=== PATIENT | male | born 1945 | race Caucasian/White ===

== ENCOUNTER 2018-07-05 16:01 | Inpatient (IN) | payer MEDICARE, MEDICAID, SELFPAY ==
[2018-07-05 17:54] VITALS: BP 146/83; PULSE 93; RESP 18; TEMP 36.9; O2SAT 92
--- NOTE | 2018-07-05 20:11 | W.PM.HP.N ---
Date of service: 07/05/18 Time of Service: 20:11 Assessment and Plan (1) Hip fracture: Current visit: Yes Status: Acute Left Sided Subcapital Hip Fracture as result of mechanical fall, in patient with history of PD, chronic gait dysfunction, and multiple prior falls. Imaging obtained by disc from outside hospital and being put into local system. Maintain on NPO status after midnight for potential surgical repair. Pain control. (2) CHF (congestive heart failure): Current visit: Yes Status: Chronic History of Systolic and Diastolic CHF in the setting of NSTEMI, with LVEF of 30% by review of old records. Patient is currently euvolemic. Recent imaging unavailable for review, and home medication list appears incorrect as the patient is unaware of what he takes at home. Currently no evidence of statin or antiplatelet therapy. Will initiate low dose BB with hold parameters, obtain ECHO when available, and procure med list in the morning. (3) Parkinson disease: Current visit: Yes Status: Chronic Appears to be on a combination of Amantadine and Carbidopa/Levodopa, with dosing currently unavailable. Attempts to reach pharmacy unsuccessful as they were closed at time of patient's admission. Will attempt to reconcile patient's medications in the morning and reinitiate home regimen. (4) RBBB: Current visit: Yes Status: Chronic Noted. (5) CAD (coronary artery disease): Current visit: Yes Status: Chronic History of NSTEMI in June of 2014, s/p stents to Mid LAD and Proximal OM1. Reinitiate low dose BB with hold parameters, hold off on antiplatelet therapy given need for surgical intervention, and consider statin therapy pending review of patient's home medication list. (6) Old non-ST elevation myocardial infarction (NSTEMI): Current visit: Yes Status: Chronic (7) Hypertension: Current visit: Yes Status: Chronic Starting BB as above. Also appears to have been on combination of ARB & Thiazide diuretic in the past by review of records from 2014. Monitor blood pressure overnight and reinititate home meds when available. (8) DVT prophylaxis: Current visit: Yes Status: Acute SCDs (9) Discharge planning issues: Current visit: Yes Status: Acute Code status reviewed - DNR/DNI per patient's wishes. History of Present Illness Chief Complaint: Hip Pain Narrative: 73-year-old man with a past medical history significant for Parkinson's disease, chronic gait dysfunction with multiple previous falls, and a history of CAD with prior NSTEMI in 2013 presents as transfer from outside hospital with a left hip fracture following a fall. Mr. Castillo has a prior history of falls, described as 3-4 over the last year alone. He utilizes a walker at baseline for ambulation. Today he was opening mail in his kitchen while standing over a chair, when he reported onset of weakness that he attributes to his PD, and suffered a mechanical fall without loss of consciousness. He reported immediate onset of pain in his left hip, but waited to see if the discomfort would subside without intervention. As the pain did not jesse the patient was brought in to [facility] ED via EMS, where imaging showed a left sided Subcapital Hip fracture per review of records (Imaging results not available). Due to Orthopedic Surgery availability the patient was transferred to [facility] for surgical repair of his fractured hip. The patient reports minimal pain while laying still in bed. Of note, the patient's records from the outside institution were limited, and the patient is not aware of his home medications. Review of records from [facility] reveals a history of CAD, with NSTEMI in June of 2014. Mr. Castillo also has a history of Bi-ventricular Heart Failure, with an LVEF of 30%, but occuring in setting of Non ST Elevation [place]. Review of Systems Review of Systems All systems reviewed & are unremarkable except as noted in HPI and below [facility] Medical History Depression (Chronic) Back pain (Chronic) Hypertension (Chronic) Old non-ST elevation myocardial infarction (NSTEMI) (Chronic) CAD (coronary artery disease) (Chronic) BPH (benign prostatic hyperplasia) (Chronic) RBBB (Chronic) Parkinson disease (Chronic) CHF (congestive heart failure) (Chronic) Social History Smoking/Tobacco Use Status: Never additional social history: Patient is single and never , with no children. He lives alone in [facility]. 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 No prior history of tobacco or alcohol use. Denies illicit drug use. Surgical History S/P tonsillectomy (Chronic) Meds Home Medications Medication Instructions Recorded Confirmed Type Unknown [Unable to Obtain] 07/05/18 07/05/18 History Allergies Allergy/AdvReac Type Severity Reaction Status Date / Time Penicillins AdvReac Unverified 07/05/18 17:36 Exam Narrative Exam Narrative: General: Patient appears comfortable, AAOX3, NAD Neck: Supple CV: Regular, nontachycardic, S1S2, No rubs, murmurs, or gallops. Pulmonary: Clear to auscultation bilaterally, no crackles, wheezing, or rhonchi on somewhat limited anterior and lateral exam Abdomen: + Bowel Sounds, soft, nontender, nondistended Vascular: No lower extremity edema Neurologic: CN II-XII grossly intact. No focal deficits. MS: Pain overlying left hip on palpation. Psych: Normal mood and affect. Results Labs : 01/30/18 14:18
--- NOTE | 2018-07-05 20:27 | HPE_ITS ---
Date of service: 07/05/18 Time of Service: 20:11 Assessment and Plan (1) Hip fracture: Current visit: Yes Status: Acute Left Sided Subcapital Hip Fracture as result of mechanical fall, in patient with history of PD, chronic gait dysfunction, and multiple prior falls. Imaging obtained by disc from outside hospital and being put into local system. Maintain on NPO status after midnight for potential surgical repair. Pain control. (2) CHF (congestive heart failure): Current visit: Yes Status: Chronic History of Systolic and Diastolic CHF in the setting of NSTEMI, with LVEF of 30% by review of old records. Patient is currently euvolemic. Recent imaging unavailable for review, and home medication list appears incorrect as the patient is unaware of what he takes at home. Currently no evidence of statin or antiplatelet therapy. Will initiate low dose BB with hold parameters, obtain ECHO when available, and procure med list in the morning. (3) Parkinson disease: Current visit: Yes Status: Chronic Appears to be on a combination of Amantadine and Carbidopa/Levodopa, with dosing currently unavailable. Attempts to reach pharmacy unsuccessful as they were closed at time of patient's admission. Will attempt to reconcile patient's medications in the morning and reinitiate home regimen. (4) RBBB: Current visit: Yes Status: Chronic Noted. (5) CAD (coronary artery disease): Current visit: Yes Status: Chronic History of NSTEMI in June of 2014, s/p stents to Mid LAD and Proximal OM1. Reinitiate low dose BB with hold parameters, hold off on antiplatelet therapy given need for surgical intervention, and consider statin therapy pending review of patient's home medication list. (6) Old non-ST elevation myocardial infarction (NSTEMI): Current visit: Yes Status: Chronic (7) Hypertension: Current visit: Yes Status: Chronic Starting BB as above. Also appears to have been on combination of ARB & Thiazide diuretic in the past by review of records from 2014. Monitor blood pressure overnight and reinititate home meds when available. (8) DVT prophylaxis: Current visit: Yes Status: Acute SCDs (9) Discharge planning issues: Current visit: Yes Status: Acute Code status reviewed - DNR/DNI per patient's wishes. History of Present Illness Chief Complaint: Hip Pain Narrative: 73-year-old man with a past medical history significant for Parkinson 's disease, chronic gait dysfunction with multiple previous falls, and a history of CAD with prior NSTEMI in 2013 presents as transfer from outside hospital with a left hip fracture following a fall. Mr. Castillo has a prior history of falls, described as 3-4 over the last year alone. He utilizes a walker at baseline for ambulation. Today he was opening mail in his kitchen while standing over a chair, when he reported onset of weakness that he attributes to his PD, and suffered a mechanical fall without loss of consciousness. He reported immediate onset of pain in his left hip, but waited to see if the discomfort would subside without intervention. As the pain did not jesse the patient was brought in to [facility] via EMS, where imaging showed a left sided Subcapital Hip fracture per review of records (Imaging results not available). Due to Orthopedic Surgery availability the patient was transferred to [facility] for surgical repair of his fractured hip. The patient reports minimal pain while laying still in bed. Of note, the patient's records from the outside institution were limited, and the patient is not aware of his home medications. Review of records from [facility] reveals a history of CAD, with NSTEMI in June of 2014. Mr. Castillo also has a history of Bi-ventricular Heart Failure, with an LVEF of 30%, but occuring in setting of Non ST Elevation [place]. Review of Systems Review of Systems All systems reviewed & are unremarkable except as noted in HPI and below [facility] Medical History Depression (Chronic) Back pain (Chronic) Hypertension (Chronic) Old non-ST elevation myocardial infarction (NSTEMI) (Chronic) CAD (coronary artery disease) (Chronic) BPH (benign prostatic hyperplasia) (Chronic) RBBB (Chronic) Parkinson disease (Chronic) CHF (congestive heart failure) (Chronic) Social History Smoking/Tobacco Use Status: Never additional social history: Patient is single and never , with no children. He lives alone in [facility]. 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 No prior history of tobacco or alcohol use. Denies illicit drug use. Surgical History S/P tonsillectomy (Chronic) Meds Home Medications Medication Instructions Recorded Confirmed Type Unknown [Unable to Obtain] 07/05/18 07/05/18 History Allergies Allergy/AdvReac Type Severity Reaction Status Date / Time Penicillins AdvReac Unverified 07/05/18 17:36 Exam Narrative Exam Narrative: General: Patient appears comfortable, AAOX3, NAD Neck: Supple CV: Regular, nontachycardic, S1S2, No rubs, murmurs, or gallops. Pulmonary: Clear to auscultation bilaterally, no crackles, wheezing, or rhonchi on somewhat limited anterior and lateral exam Abdomen: + Bowel Sounds, soft, nontender, nondistended Vascular: No lower extremity edema Neurologic: CN II-XII grossly intact. No focal deficits. MS: Pain overlying left hip on palpation. Psych: Normal mood and affect. Results Labs : 01/30/18 14:18
[2018-07-05] MEDS: MORPHine 10 MG/ML VIAL IVP (20:29)
[2018-07-05] MEDS: Normal Saline Flush 10 ML SYR IVP (20:30)
[2018-07-05] MEDS: Metoprolol 50 MG TAB PO (21:59)
[2018-07-06] VITALS (13 sets, daily range): BP systolic 125–150; BP diastolic 71–89; PULSE 75–92; RESP 17–20; TEMP 36.8–38; O2SAT 87–94
[2018-07-06] MEDS: traMADol 50 MG TAB PO (00:15)
[2018-07-06] MEDS: Normal Saline Flush 10 ML SYR IVP ×2 (01:31→03:56)
[2018-07-06] MEDS: MORPHine 10 MG/ML VIAL IVP ×2 (01:31→03:56)
[2018-07-06 07:42] LABS: HCT 44.1 % (40.0-50.0); HGB 14.6 g/dL (13.5-17.5); Mean Corp. HGB Concentration 33.1 g/dL (32.0-36.0); Mean Corpuscular Volume 102.8 fL (80-95); Mean Platelet Volume 11.2 fL (8.0-11.0); Platelet Count 176 x1000/uL (130-400); RBC 4.29 m/cumm (4.50-6.00); RBC Distribution Width 12.6 % (11.8-14.1); White Blood Cell Count 11.25 k/cumm (4.4-10.8)
[2018-07-06 07:47] LABS: Anion Gap 6.6 mmol/L (3-11); BUN 24 mg/dL (7-18); CO2 29.4 mmol/L (21.0-32.0); CREATININE 0.98 mg/dL (0.70-1.30); Calcium 8.5 mg/dL (8.5-10.1); Chloride 106 mmol/L (98-107); Glucose 101 mg/dL (70-100); Potassium 3.8 mmol/L (3.5-5.1); Sodium 142 mmol/L (136-145)
[2018-07-06 08:13] LABS: Prothrombin Time 11.2 sec (9.3-10.8)
[2018-07-06 08:14] LABS: INR 1.1 (1.0-3.5)
--- NOTE | 2018-07-06 08:56 | PT.INNT ---
Date of service: 07/06/18 Time of Service: 08:57 PT Notes PHYSICAL THERAPY NOTE 07/06/18 PT Consult received, chart reviewed. Pt is admitted with hip fracture, no orthopedic notes yet in chart to determine if patient needs surgical intervention. HOLD PT consult until ortho examines and treatment plan determined. Liyah Alberts PT
[2018-07-06] MEDS: Metoprolol 50 MG TAB PO ×2 (09:42→21:10)
[2018-07-06 10:52] LABS: Creatine Kinase 281 U/L (39-308); Troponin I 0.02 ng/mL (0.00-0.06)
--- NOTE | 2018-07-06 11:32 | PHARADMIT ---
Addendum entered by Tito Fields III 07/09/18 16:13: Pharmacy Note Subjective Post-op day#2 Hip fracture surgery. Objective VS-OK Pain:0 H&H11.3/34.4 WBC-7.25 Assessment Tramadol for pain Plan Will need short stay in SNF, has been accepted when rady for discharge Original Note: Addendum entered by Nohemy Jon 07/07/18 17:25: Pharmacy Note Subjective pt went to the OR today Objective BP-96/54 other VS okay WBC-11.06 Assessment lopressor 50 mg po Q12H discontinues after tonights dose (if needed pending BP) toporol 150 mg due to start tomorrow morning Plan continue to watch VS, labs and for med changes Original Note: Admission Pharmacy Clinical RevieW LEFT HIP FRACTURE Code Status DNR/DNI Current Weight Wgt-70.5 kg Renally Cleared and Narrow Therapeutic Index Meds CrCl~ 68 mL/min Meds-OK QTc Value / Action Taken NA BP Control, Fever BP-133/89 Tmax- 36.9C Electrolytes reviewed Na-142 K+3.8 DVT Prophylaxis No (?? Surgery ?) Opiate Usage / Scheduled Bowel Regimen Ordered Yes Yes Plt/SCr for Heparin / Enoxaparin Plts- 176 SCr-0.98 INR for Warfarin inr-1.1 H/H stable, WBC/Bands H&H- 14.6/44.1 WBC-11.25 Antibiotic appropriateness none Cultures and Sensitivities none Surgical ABX d/c within 24 hr NA DM control / Insulin Dosing BG- 101 Heart Failure (Check EF%) (MILO's, B-Block, Diuretics) Lopressor IV to PO Switch No Home Meds Reviewed No Home Meds Not Ordered Not available Comments
--- NOTE | 2018-07-06 14:59 | W.ORTHOCONSU ---
Date of service: 07/06/18 Time of Service: 14:59 History of Present Illness Chief Complaint: Left hip pain. Narrative: Mr. Castillo fell in his own home yesterday sustaining a displaced left femoral neck fracture. He was seen at [facility] and subsequently transferred to [facility] for definitive treatment of his femoral neck fracture. He was admitted to the hospitalist service. It was noted once he was here, that he had significant cardiac disease pre-existing. This is being worked up by the hospitalist and anesthesia services prior to planned unipolar prosthetic replacement of the left femoral head for femoral neck fracture. He has been determined to be a significant cardiac risk for surgery. Assessment and Plan (1) Hip fracture: Current visit: Yes Status: Acute Assessment displaced fracture left femoral neck the patient with Parkinson's disease and significant coronary artery disease. Although he has had increased risk of complications with surgery, the fracture must be treated. He will need unipolar prosthetic replacement of the left femoral head. I discussed this with the nurse concrete floor installer today. Although his cardiac echo shows the EF of 30%, a second echo done recently shows no climate change risk assessor the past year. Because he is a high risk surgical candidate, the nurse concrete floor installer would prefer to do this surgery during the daytime when there is plenty of help around. I agree that doing the procedure during regular hours would be much safer. There is no urgency to giles and do it today. Plan: Discussed this with the hospitalist and she agrees with my plan to do the surgery tomorrow when there is more help around. She also agrees to try to get the orthotist prosthetist to see the patient tomorrow morning before the planned surgery. We will feed him today and keep him n.p.o. after midnight tonight. We will have him take his Parkinson's medications today and tomorrow by mouth. Plan to proceed with unipolar prosthetic replacement of the left femoral head for femoral neck fracture tomorrow under general anesthesia. [facility] Medical History Depression (Chronic) Back pain (Chronic) Hypertension (Chronic) Old non-ST elevation myocardial infarction (NSTEMI) (Chronic) CAD (coronary artery disease) (Chronic) BPH (benign prostatic hyperplasia) (Chronic) RBBB (Chronic) Parkinson disease (Chronic) CHF (congestive heart failure) (Chronic) Social History Smoking/Tobacco Use Status: Never additional social history: Patient is single and never , with no children. He lives alone in [facility]. 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 No prior history of tobacco or alcohol use. Denies illicit drug use. Surgical History S/P tonsillectomy (Chronic) Exam Narrative Exam Narrative: When I go into the room he is oriented. Left hip is quite irritable to any motion. There is minimal shortening of the left lower extremity. He has good capillary refill in his toes. There is no swelling of his left ankle or foot. He has good sensation to light touch in the left lower extremity. X-rays from [facility] show a displaced fracture of the left femoral neck. Results Labs : 07/06/18 06:55 07/06/18 06:55 Laboratory Results - last 24 hr 07/06/18 07/06/18 07/06/18 06:55 06:55 06:55 WBC 11.25 H RBC 4.29 L Hgb 14.6 Hct 44.1 MCV 102.8 H MCH 34.0 H MCHC 33.1 RDW 12.6 Plt Count 176 MPV 11.2 H PT 11.2 H INR 1.1 Sodium 142 Potassium 3.8 Chloride 106 Carbon Dioxide 29.4 Anion Gap 6.6 BUN 24 H Creatinine 0.98 Estimated GFR/1.73 m2 >= 60.00 Glucose 101 H Calcium 8.5 Creatine Kinase 281 Troponin I 0.02
--- NOTE | 2018-07-06 15:12 | OCONE_ITS ---
Date of service: 07/06/18 Time of Service: 14:59 History of Present Illness Chief Complaint: Left hip pain. Narrative: Mr. Castillo fell in his own home yesterday sustaining a displaced left femoral neck fracture. He was seen at [facility] and subsequently transferred to [facility] for definitive treatment of his femoral neck fracture. He was admitted to the hospitalist service. It was noted once he was here, that he had significant cardiac disease pre-existing. This is being worked up by the hospitalist and anesthesia services prior to planned unipolar prosthetic replacement of the left femoral head for femoral neck fracture. He has been determined to be a significant cardiac risk for surgery. Assessment and Plan (1) Hip fracture: Current visit: Yes Status: Acute Assessment displaced fracture left femoral neck the patient with Parkinson 's disease and significant coronary artery disease. Although he has had increased risk of complications with surgery, the fracture must be treated. He will need unipolar prosthetic replacement of the left femoral head. I discussed this with the nurse maple products supervisor today. Although his cardiac echo shows the EF of 30%, a second echo done recently shows no military exchange wireless manager the past year. Because he is a high risk surgical candidate, the nurse maple products supervisor would prefer to do this surgery during the daytime when there is plenty of help around. I agree that doing the procedure during regular hours would be much safer. There is no urgency to giles and do it today. Plan: Discussed this with the hospitalist and she agrees with my plan to do the surgery tomorrow when there is more help around. She also agrees to try to get the licensed sales producer to see the patient tomorrow morning before the planned surgery. We will feed him today and keep him n.p.o. after midnight tonight. We will have him take his Parkinson's medications today and tomorrow by mouth. Plan to proceed with unipolar prosthetic replacement of the left femoral head for femoral neck fracture tomorrow under general anesthesia. [facility] Medical History Depression (Chronic) Back pain (Chronic) Hypertension (Chronic) Old non-ST elevation myocardial infarction (NSTEMI) (Chronic) CAD (coronary artery disease) (Chronic) BPH (benign prostatic hyperplasia) (Chronic) RBBB (Chronic) Parkinson disease (Chronic) CHF (congestive heart failure) (Chronic) Social History Smoking/Tobacco Use Status: Never additional social history: Patient is single and never , with no children. He lives alone in [facility]. 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 No prior history of tobacco or alcohol use. Denies illicit drug use. Surgical History S/P tonsillectomy (Chronic) Exam Narrative Exam Narrative: When I go into the room he is oriented. Left hip is quite irritable to any motion. There is minimal shortening of the left lower extremity. He has good capillary refill in his toes. There is no swelling of his left ankle or foot. He has good sensation to light touch in the left lower extremity. X-rays from [facility] show a displaced fracture of the left femoral neck. Results Labs : 07/06/18 06:55 07/06/18 06:55 Laboratory Results - last 24 hr 07/06/18 07/06/18 07/06/18 06:55 06:55 06:55 WBC 11.25 H RBC 4.29 L Hgb 14.6 Hct 44.1 MCV 102.8 H MCH 34.0 H MCHC 33.1 RDW 12.6 Plt Count 176 MPV 11.2 H PT 11.2 H INR 1.1 Sodium 142 Potassium 3.8 Chloride 106 Carbon Dioxide 29.4 Anion Gap 6.6 BUN 24 H Creatinine 0.98 Estimated GFR/1.73 m2 >= 60.00 Glucose 101 H Calcium 8.5 Creatine Kinase 281 Troponin I 0.02
--- NOTE | 2018-07-06 18:38 | PGE_ITS ---
Assessment and Plan (1) Hip fracture: Current visit: Yes Status: Acute Left Sided Subcapital Hip Fracture as result of mechanical fall, in patient with history of PD, chronic gait dysfunction, and multiple prior falls. At this point, will need cardiology preop clearance and repeat echo (EF 30% seen on echo from 2016 and 2016). Patient is high risk surgically. (2) CHF (congestive heart failure): Current visit: Yes Status: Chronic History of Systolic and Diastolic CHF in the setting of NSTEMI, with LVEF of 30% by review of old records. Monitor volume status. Agree with beta blockade and repeat echo. (3) Parkinson disease: Current visit: Yes Status: Chronic obtaining patient's medication list from home (4) RBBB: Current visit: Yes Status: Chronic Noted. (5) CAD (coronary artery disease): Current visit: Yes Status: Chronic History of NSTEMI in June of 2014, s/p stents to Mid LAD and Proximal OM1. Continue beta blockers; agree with holding antiplatelets. No evidence of ACS on this admission. (6) Old non-ST elevation myocardial infarction (NSTEMI): Current visit: Yes Status: Chronic As above (7) Hypertension: Current visit: Yes Status: Chronic BP's adequately controlled at this time. No change in tx. (8) DVT prophylaxis: Current visit: Yes Status: Acute SCDs (9) Discharge planning issues: Current visit: Yes Status: Acute Code status reviewed - DNR/DNI per patient's wishes. He will most likely require rehab postoperatively. Subjective Interval history since last seen: The patient states he feels loopy right now. He thinks he is in [facility] [place]. He denies any pain at this time. He denies any dizziness, chest pain, shortness of breath, nausea, vomiting. Exam Narrative Exam Narrative: General: Very pleasant elderly male, comfortable in bed Neurological: Alert and oriented x1, no focal deficits HEENT: Extraocular movements are intact, moist mucous membranes, no submandibular or cervical lymphadenopathy, no goiter or JVD Cardiovascular: Regularly regular rhythm, no murmurs, rubs, or gallop Lungs: Clear to auscultation bilaterally Gastrointestinal: Abdomen soft, nontender, non-to Extremities: No edema, clubbing, or cyanosis; patient is guarding his left lower extremity Objective Objective Clinical Data: Abnormal lab results 07/06/18 07/06/18 07/06/18 Range/Units 06:55 06:55 06:55 WBC 11.25 H (4.4-10.8) k/cumm RBC 4.29 L (4.50-6.00) m/cumm MCV 102.8 H (80-95) fL MCH 34.0 H (27.0-33.0) pg MPV 11.2 H (8.0-11.0) fL PT 11.2 H (9.3-10.8) sec BUN 24 H (7-18) mg/dL Glucose 101 H (70-100) mg/dL Vital Signs Temperature 37.1 C 07/06/18 16:22 Temperature Source Tympanic 07/06/18 16:22 Pulse 84 07/06/18 16:22 Pulse Rhythm Regular 07/06/18 16:31 Respiratory Rate 20 07/06/18 16:22 Respiratory Effort 07/06/18 16:31 Respiratory Depth Normal 07/06/18 16:31 Respiratory Pattern Normal 07/06/18 16:31 Blood Pressure 150/81 H 07/06/18 16:22 Pulse Oximetry 92 L 07/06/18 16:37 Oxygen Delivery Method Nasal Cannula 07/06/18 16:37 Oxygen Flow Rate 3 07/06/18 16:37 Pain Level 4 07/06/18 16:22 Comment 07/06/18 12:50 Intake & Output 07/05/18 07/06/18 07/06/18 23:59 11:59 23:59 Intake Total 900 / 900 60 / 60 300 / 300 Output Total 150 / 150 425 / 425 300 / 300 Balance 750 / 750 -365 / -365 0 / 0 Weight 70.307 kg 70.5 kg Intake: Oral 900 / 900 60 / 60 300 / 300 Output: Urine 150 / 150 425 / 425 300 / 300 Other: Urine Color Yellow Light Eleanor Putnam Urine Appearance Clear Clear Cloudy Urine Odor Normal Normal Normal Comment pt refused Voiding Methods Urinal Urinal Urinal Laboratory Results WBC 11.25 k/cumm (4.4-10.8) H 07/06/18 06:55 RBC 4.29 m/cumm (4.50-6.00) L 07/06/18 06:55 Hgb 14.6 g/dL (13.5-17.5) 07/06/18 06:55 Hct 44.1 % (40.0-50.0) 07/06/18 06:55 MCV 102.8 fL (80-95) H 07/06/18 06:55 MCH 34.0 pg (27.0-33.0) H 07/06/18 06:55 MCHC 33.1 g/dL (32.0-36.0) 07/06/18 06:55 RDW 12.6 % (11.8-14.1) 07/06/18 06:55 Plt Count 176 x1000/uL (130-400) 07/06/18 06:55 MPV 11.2 fL (8.0-11.0) H 07/06/18 06:55 PT 11.2 sec (9.3-10.8) H 07/06/18 06:55 INR 1.1 (1.0-3.5) 07/06/18 06:55 Sodium 142 mmol/L (136-145) 07/06/18 06:55 Potassium 3.8 mmol/L (3.5-5.1) 07/06/18 06:55 Chloride 106 mmol/L (98-107) 07/06/18 06:55 Carbon Dioxide 29.4 mmol/L (21.0-32.0) 07/06/18 06:55 Anion Gap 6.6 mmol/L (3-11) 07/06/18 06:55 BUN 24 mg/dL (7-18) H 07/06/18 06:55 Creatinine 0.98 mg/dL (0.70-1.30) 07/06/18 06:55 Estimated GFR/1.73 m2 >= 60.00 (mL/min/1.73m2) 07/06/18 06:55 Glucose 101 mg/dL (70-100) H 07/06/18 06:55 Calcium 8.5 mg/dL (8.5-10.1) 07/06/18 06:55 Creatine Kinase 281 U/L (39-308) 07/06/18 06:55 Troponin I 0.02 ng/mL (0.00-0.06) 07/06/18 06:55 LDL Cholesterol Direct 74 mg/dL (<100) 01/30/18 14:18 TSH 2.70 uIU/mL (0.358-3.74) 01/30/18 14:18
--- NOTE | 2018-07-06 18:41 | PDOC.CMIN ---
Care Management Initial Assess REASON FOR HOSPITALIZATION:: Subcapital L Hip FX PAST MEDICAL HISTORY/PAST SURGICAL HISTORY:: CHF, Parkinsons, RBBB, CAD, NSTEMI, Tonsillectomy PREVIOUS FUNCTIONAL STATUS/SOCIAL/FAMILY SUPPORTS:: Independent. Lives alone in [facility] CURRENT FUNCTIONAL STATUS:: Lying comfortably in bed. ADVANCE DIRECTIVES:: None on file Has patient been provided with information about the portal?: No Did the patient sign up for the portal?: No CODE STATUS:: DNR/DNI INSURANCE COVERAGE / FINANCIAL ISSUES:: Medicare CURRENT HOME/COMMUNITY SERVICES/EQUIPMENT:: None PRIMARY CARE PHYSICIAN:: Warren Cleary MD POTENTIAL DISCHARGE NEEDS:: DME, Services PATIENT/FAMILY EDUCATION NEEDS:: Discharge instructions ANTICIPATED BARRIERS TO DISCHARGE:: None TRANSPORTATION:: Friends PLAN:: Anticipate surgical repair of Fx Hip tomorrow. Will follow and continue to support and facilitate discharge planning.
--- NOTE | 2018-07-06 18:49 | INITIAL_ITS ---
Care Management Initial Assess REASON FOR HOSPITALIZATION:: Subcapital L Hip FX PAST MEDICAL HISTORY/PAST SURGICAL HISTORY:: CHF, Parkinsons, RBBB, CAD, NSTEMI , Tonsillectomy PREVIOUS FUNCTIONAL STATUS/SOCIAL/FAMILY SUPPORTS:: Independent. Lives alone in [facility] CURRENT FUNCTIONAL STATUS:: Lying comfortably in bed. ADVANCE DIRECTIVES:: None on file Has patient been provided with information about the portal?: No Did the patient sign up for the portal?: No CODE STATUS:: DNR/DNI INSURANCE COVERAGE / FINANCIAL ISSUES:: Medicare CURRENT HOME/COMMUNITY SERVICES/EQUIPMENT:: None PRIMARY CARE PHYSICIAN:: Warren Cleary MD POTENTIAL DISCHARGE NEEDS:: DME, Services PATIENT/FAMILY EDUCATION NEEDS:: Discharge instructions ANTICIPATED BARRIERS TO DISCHARGE:: None TRANSPORTATION:: Friends PLAN:: Anticipate surgical repair of Fx Hip tomorrow. Will follow and continue to support and facilitate discharge planning.
[2018-07-06] MEDS: Acetaminophen 325 MG TAB PO (21:10)
[2018-07-07] VITALS (18 sets, daily range): BP systolic 88–147; BP diastolic 52–85; PULSE 72–85; RESP 10–24; TEMP 36–37.4; O2SAT 92–99
[2018-07-07 06:47] LABS: HCT 44.1 % (40.0-50.0); HGB 14.8 g/dL (13.5-17.5); Mean Corp. HGB Concentration 33.6 g/dL (32.0-36.0); Mean Corpuscular Hemoglobin 34.3 pg (27.0-33.0); Mean Corpuscular Volume 102.1 fL (80-95); Mean Platelet Volume 11.2 fL (8.0-11.0); Platelet Count 143 x1000/uL (130-400); RBC 4.32 m/cumm (4.50-6.00); RBC Distribution Width 12.6 % (11.8-14.1); White Blood Cell Count 11.06 k/cumm (4.4-10.8)
[2018-07-07 06:55] LABS: Anion Gap 9.1 mmol/L (3-11); BUN 23 mg/dL (7-18); CO2 26.9 mmol/L (21.0-32.0); Calcium 8.6 mg/dL (8.5-10.1); Chloride 107 mmol/L (98-107); Glucose 108 mg/dL (70-100); Potassium 3.5 mmol/L (3.5-5.1); Sodium 143 mmol/L (136-145)
--- NOTE | 2018-07-07 07:30 | MERGE_ITS ---
*[facility]* *[facility]* [address] [place] [address] Date of study: 07/07/2018 Transthoracic Echocardiography M-mode, complete 2D, complete spectral Doppler, and color Doppler *STUDY CONCLUSIONS* Summary: 1. Left ventricle: The cavity size was mildly to moderately dilated. Systolic function was moderately to severely reduced. The estimated ejection fraction was 30-35%. Diffuse hypokinesis. Akinesis of the apical myocardium. Doppler parameters are consistent with high ventricular filling pressure. No evidence of thrombus. 2. Aortic valve: There was mild regurgitation. 3. Mitral valve: There was mild regurgitation. 4. Left atrium: The atrium was mildly dilated. 5. Right ventricle: The cavity size was normal. Systolic function was mildly reduced. 6. Atrial septum: No defect or patent foramen ovale was identified. 7. Tricuspid valve: There was mild-moderate regurgitation. 8. Pulmonary arteries: Pulmonary systolic pressure was in the range of 45mm Hg to 55mm Hg. 9. Inferior vena cava: The vessel was patent and normal in size. The respirophasic diameter changes were in the normal range (greater than or equal to 50%), consistent with normal central venous pressure. *PATIENT PRESENTATION* Height: 182.9cm ((72in) ) S/D Pressure: 139 / 77 Weight: 70.3kg ((154.7lb) ) BSA: 1.88m^2 Test start time: 07:45 AM. Test stop time: 08:40 AM. PERFORMING Unknown ORDERING Brad Mayo REFERRING Brad Mayo PERFORMING [facility] *PROCEDURE DATA* Procedure information: The patient was identified by two identifiers. This study was interpreted by [facility]. Pertinent images and digital data are archived for permanent storage and are available for subsequent review. No prior study was available for comparison. Study status: Routine. Transthoracic echocardiography. M-mode, complete 2D, complete spectral Doppler, and color Doppler. A Transthoracic Echocardiogram was performed. Scanning was performed from the parasternal, apical, subcostal, and suprasternal notch acoustic windows. Images were obtained using an [id number] cardiac ultrasound machine. Image quality was adequate. Study completion: The patient tolerated the procedure well. *CARDIAC ANATOMY* Left ventricle: The cavity size was mildly to moderately dilated. Systolic function was moderately to severely reduced. The estimated ejection fraction was 30-35%. Diffuse hypokinesis. No evidence of thrombus. Regional wall motion abnormalities: Akinesis of the apical myocardium. Some parameters suggest diastolic dysfunction. Doppler parameters are consistent with high ventricular filling pressure. Aortic valve: Trileaflet. Doppler: There was no stenosis. There was mild regurgitation. VTI ratio of LVOT to aortic valve: 0.71. Valve area (VTI): 2.4cm^2. Indexed valve area (VTI): 1.3cm^2/m^2. Peak velocity ratio of LVOT to aortic valve: 0.69. Valve area (Vmax): 2.3cm^2. Indexed valve area (Vmax): 1.2cm^2/m^2. Mean velocity ratio of LVOT to aortic valve: 0.67. Valve area (Vmean): 2.3cm^2. Indexed valve area (Vmean): 1.2cm^2/m^2. Mean gradient (S): 5.5mm Hg. Peak gradient (S): 9.3mm Hg. Aorta: Aortic root: The aortic root was normal in size. Ascending aorta: The ascending aorta was normal in size. Mitral valve: Doppler: There was no evidence for stenosis. There was mild regurgitation. Valve area by pressure half-time: 6.2cm^2. Indexed valve area by pressure half-time: 3.3cm^2/m^2. Left atrium: The atrium was mildly dilated. Atrial septum: No defect or patent foramen ovale was identified. Right ventricle: The cavity size was normal. Systolic function was mildly reduced. Pulmonic valve: Doppler: There was no evidence for stenosis. There was trivial regurgitation. Peak gradient (S): 2.3mm Hg. Tricuspid valve: Doppler: There was mild-moderate regurgitation. Pulmonary artery: Poorly visualized. Pulmonary systolic pressure was in the range of 45mm Hg to 55mm Hg. Right atrium: The atrium was normal in size. Pericardium: There was no pericardial effusion. Systemic veins: Inferior vena cava: Well visualized. The vessel was patent and normal in size. The respirophasic diameter changes were in the normal range (greater than or equal to 50%), consistent with normal central venous pressure. Baseline ECG: Normal sinus rhythm. Measurements Left ventricle Value Reference LV ID, ED, PLAX (H) 6.5 cm 3.5 - 6.0 LV ID, ES, PLAX (H) 5.5 cm 2.1 - 4.0 LV PW thickness, ED, PLAX 1.0 cm LV end-diastolic volume, 1-p A2C 126 ml LV ejection fraction, 1-p A2C 24 % LV end-diastolic volume, 1-p A4C 178 ml LV ejection fraction, 1-p A4C 38 % LV e', lateral 0.035 m/sec LV E/e', lateral 15 LV e', medial 0.036 m/sec LV E/e', medial 15 LV e', average 0.036 m/sec LV E/e', average 15 Ventricular septum Value Reference IVS thickness, ED, PLAX 0.8 cm LVOT Value Reference LVOT ID, A-P 2.1 cm LVOT area 3.4 cm^2 LVOT peak velocity, S 1.05 m/sec LVOT mean velocity, S 0.76 m/sec LVOT VTI, S 21.3 cm LVOT peak gradient, S 4.5 mm Hg LVOT mean gradient, S 2.6 mm Hg Stroke volume (SV), LVOT DP 71 ml Stroke index (SV/bsa), LVOT DP 38 ml/m^2 Aortic valve Value Reference Aortic valve peak velocity, S 1.5 m/sec Aortic valve mean velocity, S 1.13 m/sec Aortic valve VTI, S 30.0 cm Aortic mean gradient, S 5.5 mm Hg Aortic peak gradient, S 9.3 mm Hg VTI ratio, LVOT/AV 0.71 Aortic valve area, VTI 2.4 cm^2 Velocity ratio, peak, LVOT/AV 0.69 Aortic valve area, peak velocity 2.3 cm^2 Velocity ratio, mean, LVOT/AV 0.67 Aortic valve area, mean velocity 2.3 cm^2 Aortic valve area/bsa, mean velocity 1.2 cm^2/m^2 Aortic regurg deceleration 350 cm/s^2 Aortic regurg pressure half-time 356 ms Aorta Value Reference Aortic root ID, ED 3.2 cm Ascending aorta ID, A-P, S 3.5 cm RVOT Value Reference RVOT VTI, S 12.7 cm Left atrium Value Reference LA ID, A-P, ES 4.4 cm LA ID/bsa, A-P (H) 2.4 cm/m^2 <=2.2 LA area, ES, A4C (H) 24.8 cm^2 8.8 - 23.4 LA area, ES, A2C 20 cm^2 LA volume/bsa, ES, 1-p A4C 42 ml/m^2 LA volume, ES, 2-p 72 ml LA volume/bsa, ES, 2-p 38 ml/m^2 LA/aortic root ratio 1.41 Mitral valve Value Reference Mitral E-wave peak velocity 0.52 m/sec Mitral A-wave peak velocity 0.89 m/sec Mitral deceleration time (L) 123 ms 150 - 230 Mitral pressure half-time 36 ms Mitral E/A ratio, peak 0.59 Mitral valve area, PHT, DP 6.2 cm^2 Tricuspid valve Value Reference Tricuspid regurg peak velocity 3.5 m/sec Tricuspid peak RV-RA gradient 48.2 mm Hg Right atrium Value Reference RA area, ES, A4C 16.9 cm^2 8.3 - 19.5 Pulmonic valve Value Reference Pulmonic peak gradient, S 2.3 mm Hg Legend: (L) and (H) wilber values outside specified reference range. I have personally reviewed the images and have reviewed and edited the reported findings. Electronically signed by Tu Pelletier MD 07/07/2018 11:15
--- NOTE | 2018-07-07 07:59 | OT.INNT ---
Date of service: 07/07/18 Time of Service: 07:59 Occupational Therapy Notes 07/07/18 Pt on hold from OT consult pending surgery to (L) hip at this time. Vernell Lopez OTR/L
--- NOTE | 2018-07-07 08:42 | DI.RAD_ITS ---
SYMPTOMS/DIAGNOSIS: FEVER IN A PATIENT WITH A HIP FRACTURE, ? PNEUMONIA CHEST X-RAY, AP VIEW: No priors. The heart is enlarged. Pulmonary vasculature is within normal limits. No focal consolidating infiltrates, effusion or pneumothoraces are identified. The bones are grossly unremarkable. IMPRESSION: 1. No acute pulmonary process. 2. Cardiomegaly.
[2018-07-07] MEDS: Metoprolol 50 MG TAB PO (09:43)
[2018-07-07] MEDS: Normal Saline Flush 10 ML SYR IVP (10:11)
[2018-07-07] MEDS: Furosemide 40 MG/4 ML VIAL IVP (10:11)
[2018-07-07] MEDS: Carbidopa 25/Levodopa 100 TAB PO ×4 (10:52→21:34)
--- NOTE | 2018-07-07 11:43 | PDOC.CMPRO ---
- If Service Date Differs Date of service: 07/07/18 Time of Service: 11:43 Care Management Progress Note S/O: Esther is lying in bed when CM visits this morning. He is engaged in conversation, makes good eye contact and is talkative. Esther denies pain at this time and does not appear in any distress. He reports that his recent fall was due to his Parkinson's but admits to having fallen 3-4 times over the course of this year. Esther reports that he uses a walker for ambulation and does venture out to religion and the grocery store, walking, with the walker, on occasion. He reports that he does not get out as much as he used to. Esther is independent with his ADLs and does not drive. He has family in [place] who bring his food every couple of weeks. Patient reports that he does not have any home health services at this time. He did have [facility] in the past but reports he canceled it due to his stockpiling the food in the freezer and not eating it. CM discusses plans with Esther regarding 'next steps' and he reports that he does not want to go to a SNF for rehab or group home. Esther is scheduled for the OR today following a cardiology consult. A: 73 year old male admitted post fall for subcapital left hip fracture. P: Esther will discharge home when medically ready per MD. Anticipate patient will discharge with home health services, PT/OT (?) and follow up with his PCP and plan of care. Esther will transport via private vehicle with friends. CM will continue to offer support to patient and care team regarding discharge planning and disposition.
--- NOTE | 2018-07-07 11:51 | CMPROGNOTE_ITS ---
- If Service Date Differs Date of service: 07/07/18 Time of Service: 11:43 Care Management Progress Note S/O: Esther is lying in bed when CM visits this morning. He is engaged in conversation, makes good eye contact and is talkative. Esther denies pain at this time and does not appear in any distress. He reports that his recent fall was due to his Parkinson's but admits to having fallen 3-4 times over the course of this year. Esther reports that he uses a walker for ambulation and does venture out to [employer] and the grocery store, walking, with the walker, on occasion. He reports that he does not get out as much as he used to. Esther is independent with his ADLs and does not drive. He has family in [place] who bring his food every couple of weeks. Patient reports that he does not have any home health services at this time. He did have [facility] in the past but reports he canceled it due to his stockpiling the food in the freezer and not eating it. CM discusses plans with Esther regarding 'next steps' and he reports that he does not want to go to a SNF for rehab or half-way. Esther is scheduled for the OR today following a cardiology consult. A: 73 year old male admitted post fall for subcapital left hip fracture. P: Esther will discharge home when medically ready per MD. Anticipate patient will discharge with home health services, PT/OT (?) and follow up with his PCP and plan of care. Esther will transport via private vehicle with friends. CM will continue to offer support to patient and care team regarding discharge planning and disposition.
--- NOTE | 2018-07-07 13:48 | PT.INNT ---
Date of service: 07/07/18 Time of Service: 13:48 PT Notes PHYSICAL THERAPY NOTE 07/07/18 Pt awaiting surgical intervention for fractured hip. Discharge PT Consult as patient is not stable to mobilize until surgery completed. Will need new PT Consult post operatively to begin therapy intervention. Will need weight bearing orders and precautions from ortho Liyah Alberts PT
[2018-07-07] MEDS: ELECTROLYTE-R SOLUTION 1,000 ML 150 ML IV (14:41)
--- NOTE | 2018-07-07 16:59 | W.PM.PROGNOT ---
Assessment and Plan (1) Hip fracture: Current visit: Yes Status: Acute Left Sided Subcapital Hip Fracture as result of mechanical fall, in patient with history of PD, chronic gait dysfunction, and multiple prior falls. - will monitor H/H and fluid status postoperatively. (2) CHF (congestive heart failure): Current visit: Yes Status: Chronic History of Systolic and Diastolic CHF in the setting of NSTEMI, with LVEF of 30% by review of old records. Patient written for lasix 40 mg x 1 preop - monitor volume status postop.Res (3) Parkinson disease: Current visit: Yes Status: Chronic Continue outpatient carbidopa-levodopa. (4) RBBB: Current visit: Yes Status: Chronic Noted. (5) CAD (coronary artery disease): Current visit: Yes Status: Chronic History of NSTEMI in June of 2014, s/p stents to Mid LAD and Proximal OM1. Continue beta blockers; holding antiplatelets for now. Will discuss with orthopedics when he is safe to restart them. No evidence of ACS on this admission. (6) Old non-ST elevation myocardial infarction (NSTEMI): Current visit: Yes Status: Chronic As above (7) Hypertension: Current visit: Yes Status: Chronic Resume outpatient regimen post op if BP's permit (8) DVT prophylaxis: Current visit: Yes Status: Acute SCDs (9) Discharge planning issues: Current visit: Yes Status: Acute Code status reviewed - DNR/DNI per patient's wishes. He will most likely require rehab postoperatively. Subjective Interval history since last seen: The patient was awaiting OR when I saw him. He was comfortable, denying any dizziness, chest pain, shortness of breath, nausea, vomiting. He stated he last took plavix on Saturday morning. Febrile to 38.1 overnight. Exam Narrative Exam Narrative: General: Very pleasant elderly male, comfortable in bed Neurological: Alert and oriented x3, no focal deficits HEENT: Extraocular movements are intact, moist mucous membranes, no submandibular or cervical lymphadenopathy, no goiter or JVD Cardiovascular: Regularly regular rhythm, no murmurs, rubs, or gallop Lungs: quiet but coarse rhonchi bilaterally. Gastrointestinal: Abdomen soft, nontender, nondistended Extremities: No edema, clubbing, or cyanosis in BLE's. Objective Objective Clinical Data: Abnormal lab results 07/07/18 07/07/18 Range/Units 06:12 06:12 WBC 11.06 H (4.4-10.8) k/cumm RBC 4.32 L (4.50-6.00) m/cumm MCV 102.1 H (80-95) fL MCH 34.3 H (27.0-33.0) pg MPV 11.2 H (8.0-11.0) fL BUN 23 H (7-18) mg/dL Glucose 108 H (70-100) mg/dL Vital Signs Temperature 37.1 C 07/07/18 11:44 Temperature Source Tympanic 07/07/18 11:44 Pulse 82 07/07/18 11:44 Pulse Rhythm Regular 07/07/18 07:50 Respiratory Rate 17 07/07/18 11:44 Respiratory Effort 07/07/18 07:50 Respiratory Depth Normal 07/07/18 07:50 Respiratory Pattern Normal 07/07/18 07:50 Blood Pressure 147/85 H 07/07/18 11:44 Pulse Oximetry 96 07/07/18 11:44 Oxygen Delivery Method Nasal Cannula 07/07/18 11:44 Oxygen Flow Rate 4 07/07/18 11:44 Pain Level 0 07/07/18 07:15 Comment 07/06/18 12:50 Intake & Output 07/06/18 07/07/18 07/07/18 23:59 11:59 23:59 Intake Total 300 / 300 65 / 65 Output Total 540 / 540 800 / 800 1275 / 1275 Balance -240 / -240 -800 / -800 -1210 / -1210 Intake: IV 65 / 65 Oral 300 / 300 Output: Urine 540 / 540 800 / 800 1075 / 1075 Estimated Blood Loss 200 / 200 Other: Urine Color Light Eleanor Light Eleanor Yellow Urine Appearance Clear Clear Clear Urine Odor Normal Strong Strong Comment post lasix pt incontinent of large amounts of urine. Voiding Methods Urinal Urinal Incontinent Laboratory Results WBC 11.06 k/cumm (4.4-10.8) H 07/07/18 06:12 RBC 4.32 m/cumm (4.50-6.00) L 07/07/18 06:12 Hgb 14.8 g/dL (13.5-17.5) 07/07/18 06:12 Hct 44.1 % (40.0-50.0) 07/07/18 06:12 MCV 102.1 fL (80-95) H 07/07/18 06:12 MCH 34.3 pg (27.0-33.0) H 07/07/18 06:12 MCHC 33.6 g/dL (32.0-36.0) 07/07/18 06:12 RDW 12.6 % (11.8-14.1) 07/07/18 06:12 Plt Count 143 x1000/uL (130-400) 07/07/18 06:12 MPV 11.2 fL (8.0-11.0) H 07/07/18 06:12 PT 11.2 sec (9.3-10.8) H 07/06/18 06:55 INR 1.1 (1.0-3.5) 07/06/18 06:55 Sodium 143 mmol/L (136-145) 07/07/18 06:12 Potassium 3.5 mmol/L (3.5-5.1) 07/07/18 06:12 Chloride 107 mmol/L (98-107) 07/07/18 06:12 Carbon Dioxide 26.9 mmol/L (21.0-32.0) 07/07/18 06:12 Anion Gap 9.1 mmol/L (3-11) 07/07/18 06:12 BUN 23 mg/dL (7-18) H 07/07/18 06:12 Creatinine 1.00 mg/dL (0.70-1.30) 07/07/18 06:12 Estimated GFR/1.73 m2 >= 60.00 (mL/min/1.73m2) 07/07/18 06:12 Glucose 108 mg/dL (70-100) H 07/07/18 06:12 Calcium 8.6 mg/dL (8.5-10.1) 07/07/18 06:12 Magnesium 2.0 mg/dL (1.8-2.4) 07/07/18 06:12 Creatine Kinase 281 U/L (39-308) 07/06/18 06:55 Troponin I 0.02 ng/mL (0.00-0.06) 07/06/18 06:55 LDL Cholesterol Direct 74 mg/dL (<100) 01/30/18 14:18 TSH 2.70 uIU/mL (0.358-3.74) 01/30/18 14:18 Patient ABO/Rh A Positive 07/07/18 14:45 Antibody Screen Negative 07/07/18 14:45 CXR: negative
--- NOTE | 2018-07-07 17:14 | DI.RAD_ITS ---
SYMPTOM/DIAGNOSIS: CHECK LT HIP PROSTHESIS AP PELVIS: Comparison is made with prior examination. The patient is status post left hip replacement. The orthopedic hardware appears in good position. The bones are intact. Skin leonidas are present. Vascular calcifications are present in the soft tissues. IMPRESSION: Status post left hip replacement.
[2018-07-07] MEDS: POTASSIUM CHLORIDE/0.9% NACL 1,000 ML 100 MEQ IV (19:00)
[2018-07-07] MEDS: Atorvastatin 40 MG TAB PO (21:34)
[2018-07-07] MEDS: Tamsulosin 0.4 MG CAPCR PO (21:34)
[2018-07-07] MEDS: Ketorolac 30 MG/ML VIAL IVP (21:34)
[2018-07-07] MEDS: Docusate Sodium 100 MG CAP PO (21:34)
[2018-07-07] MEDS: Finasteride 5 MG TAB PO (21:34)
[2018-07-07 22:36] LABS: HCT 41.2 % (40.0-50.0); HGB 13.8 g/dL (13.5-17.5)
--- NOTE | 2018-07-07 23:09 | NUR.NOTE ---
Nursing Note: patient arrived from [facility] to room 214 at aprx 1750. Patient transferred from stretcher to bed via hover without difficulties. Bilateral IV's patent, griffin patent, and arterial pressure dressing intact. Dressing to left hip c/d/i. Denies pain or discomfort. Requested food and po as soon as patient hit floor. Family at bedside. All needs met.
[2018-07-08] VITALS (10 sets, daily range): BP systolic 82–112; BP diastolic 54–63; PULSE 68–94; RESP 17–24; TEMP 36–37.8; O2SAT 90–97
[2018-07-08] MEDS: Ketorolac 30 MG/ML VIAL IVP ×4 (04:56→22:56)
[2018-07-08] MEDS: POTASSIUM CHLORIDE/0.9% NACL 1,000 ML 100 MEQ IV (04:56)
[2018-07-08 06:53] LABS: HCT 40.6 % (40.0-50.0); HGB 13.6 g/dL (13.5-17.5); Mean Corp. HGB Concentration 33.5 g/dL (32.0-36.0); Mean Corpuscular Hemoglobin 34.4 pg (27.0-33.0); Mean Corpuscular Volume 102.8 fL (80-95); Mean Platelet Volume 11.3 fL (8.0-11.0); Platelet Count 134 x1000/uL (130-400); RBC 3.95 m/cumm (4.50-6.00); RBC Distribution Width 12.4 % (11.8-14.1); White Blood Cell Count 10.87 k/cumm (4.4-10.8)
[2018-07-08 06:59] LABS: Anion Gap 8.9 mmol/L (3-11); BUN 29 mg/dL (7-18); CO2 27.1 mmol/L (21.0-32.0); CREATININE 1.25 mg/dL (0.70-1.30); Chloride 108 mmol/L (98-107); Estimated GFR 56.94 (mL/min/1.73m2); Glucose 141 mg/dL (70-100); Potassium 3.7 mmol/L (3.5-5.1); Sodium 144 mmol/L (136-145)
[2018-07-08] MEDS: Carbidopa 25/Levodopa 100 TAB PO ×4 (08:03→19:15)
[2018-07-08] MEDS: traMADol 50 MG TAB PO (08:03)
[2018-07-08] MEDS: Metoprolol CR 100 MG TABCR 150 MG PO (08:03)
[2018-07-08] MEDS: Docusate Sodium 100 MG CAP PO ×2 (08:03→19:16)
[2018-07-08] MEDS: Acetaminophen 325 MG TAB 650 MG PO (08:03)
[2018-07-08] MEDS: Pantoprazole 40 MG TABCR PO (08:03)
--- NOTE | 2018-07-08 09:30 | PDOC.CMPRO ---
- If Service Date Differs Date of service: 07/08/18 Time of Service: 09:30 Care Management Progress Note S/O: Esther is lying in bed when CM visits this morning. He is engaged in conversation and is talkative but keeps his eyes closed while speaking to CM. Esther is post op day 1 for surgical repair of his left hip. His griffin has been removed, he reports that he is voiding, and he denies pain. PT and OT are due to work with Esther today and evaluate his ability with ambulation. Esther reports that he uses a walker at home and has fallen multiple times over the course of the year. CM and patient discussed the fact that he resides alone, is unsteady on his feet at baseline, and he might benefit from a short term rehab stay at a local SNF. Esther initially is not open to the idea but does eventually agree that this might be a good option. CM faxed referrals to [facility], [facility], [facility], [facility], and the [facility]. [facility] has offered Esther a bed at discharge and Esther has accepted. Esther has a walker so will not be needing DME upon discharge. Esther reports that he works with [employer] at [employer] but has no other community services. A: 73 year old male admitted post fall for subcapital left hip fracture. P: Esther will discharge to [facility] for short term rehab when medically ready per MD. Anticipate patient will discharge with home health services, PT/OT (if home) and follow up with his PCP and plan of care. Esther will transport via private vehicle with friends. CM will continue to offer support to patient and care team regarding discharge planning and disposition.
--- NOTE | 2018-07-08 09:35 | ROE_ITS ---
REPORT OF OPERATIVE PROCEDURE DATE OF PROCEDURE July 07, 2018 PREOPERATIVE DIAGNOSES Fracture left femoral neck displaced. POSTOPERATIVE DIAGNOSES Fracture left femoral neck displaced. PROCEDURE Unipolar prosthetic replacement left femoral head for femoral neck fracture. ANESTHESIA General. SURGEON Gwyn Pena M.D. BODY WELDER HARPAL Molina INDICATIONS This is a 73-year-old white male who fell at home on 07/05/2018 sustained a displaced fracture of the left femoral neck. He was transported to the [facility] for evaluation. There was no orth opedic coverage at [facility] and I was contacted from the [facility] Emergen cy Room. I agreed to accept the patient. The patient was admitted to the Hospitalist Service for pre operative clearance. The patient had prior cardiac issues and so it was felt that rather than perform ing surgery late in the day on Saturday, that surgery should be performed during regular OR hours so th at there would be help around if problems occurred. It was therefore decided to bring the patient to the Operating Room on 07/07/2018 for definitive treatment, which would be a unipolar prosthetic repla cement of the left femoral head for femoral neck fracture. The risks and complications of the procedu re were explained to the patient in detail preoperatively. PROCEDURE The patient was taken to the Operating Room on 07/07/2018. He was placed supine on the operating tabl e and General anesthetic was administered. He was then turned to the left lateral position on the Ope rating Table, the position was maintained with a pneumatic beanbag. The left hip was prepped and drap ed free and usual sterile fashion. A standard posterolateral incision was made centered over the grea ter trochanter. The incision was carried through the skin and subcu to the fascia. The iliotibial ba nd and gluteus fascia were split in line with the skin incision. Charnley self-retraining retractors were inserted. The piriformis tendon was identified. Tag sutures were placed in the piriformis tendon and the piriformis tendon was then released from the posterior femoral neck. The remainder of the short external rotators were released from the posterior femoral n rajiv by electrocautery. A T-shaped incision was made in the posterior capsule, exposing the fracture. The fractured femoral head was removed with a cork screw device. The femoral neck was then resected a t an appropriate angle and level using the oscillating saw and the femoral neck resection guide. The femoral canal was reamed with serial reamers to a size 6 and then was broached up to a size 6, where there was found to be good fit and fill of the femoral canal. The broach was removed. The femoral can al was plugged distally with the universal cement restrictor. The femoral head was sized and a trial unipolar head was placed in the acetabulum and it was found that a 50-mm head was the appropriate siz e. The femoral canal was then prepared with cementing with pulse irrigation lavage of saline solution and drying with peroxide-soaked strip sponges. Two packages of Gentamicin-impregnated Methyl Methacr ylate were vacuum mixed and were injected into the prepared femoral canal with the cement gun and pre ssurized in the canal. The size #6 stem had a centralizer applied to the tip and then the size #6 fem oral stem was inserted until the collar of the component contacted the calcar of the femur. Pressure was applied to maintain the stem in this position. Excess cement was removed from the margins of the component and femoral neck with rongeurs. When the cement had fully cured and hardened, trial reducti on was performed and it was found that a -3 sleeve with a 50-mm diameter endo head was the correct si ze. The -3-mm sleeve was placed in the endo head and then the entire unipolar assembly was placed on the trunnion of the femoral component. It was locked into place with the impactor mallet. The femoral component was reduced into the acetabulum. The left leg was abducted in a Glasgow stand. The posterior capsule was closed with interrupted cafesm-ep-qxowt sutures of #1-Vicryl suture material. The wound m argins were infiltrated with 0.5% Marcaine with epinephrine solution. The piriformis tendon was attac hed to the abductor tendon at the posterior tip of the trochanter with interrupted qhahud-ga-xigrb tapia tures of #1-Vicryl suture material. The wound margins were infiltrated with 0.5% Marcaine with epinep hrine solution. The iliotibial band and gluteus fascia were approximated with interrupted figure-of-e ight sutures of #1- Vicryl suture material. The subcu was approximated with interrupted #2-0 Vicryl s utures. The skin edges were approximated with skin leonidas. The patient received 1.5 gram of tranexa radha acid prior to making the skin incision. Estimated blood loss was about 150 to 200 cc. The patient tolerated the procedure well. His anesthesia was reversed without complications. He was discharged t o the Recovery Room in good condition.
--- NOTE | 2018-07-08 09:38 | CMPROGNOTE_ITS ---
- If Service Date Differs Date of service: 07/08/18 Time of Service: 09:30 Care Management Progress Note S/O: Esther is lying in bed when CM visits this morning. He is engaged in conversation and is talkative but keeps his eyes closed while speaking to CM. Esther is post op day 1 for surgical repair of his left hip. His griffin has been removed, he reports that he is voiding, and he denies pain. PT and OT are due to work with Esther today and evaluate his ability with ambulation. Esther reports that he uses a walker at home and has fallen multiple times over the course of the year. CM and patient discussed the fact that he resides alone, is unsteady on his feet at baseline, and he might benefit from a short term rehab stay at a local SNF. Esther initially is not open to the idea but does eventually agree that this might be a good option. CM faxed referrals to [facility], [facility], [facility], [facility], and the [facility]. [facility] has offered Esther a bed at discharge and Esther has accepted. Esther has a walker so will not be needing DME upon discharge. Esther reports that he works with [employer] at [facility] but has no other community services. A: 73 year old male admitted post fall for subcapital left hip fracture. P: Esther will discharge to [facility] for short term rehab when medically ready per MD. Anticipate patient will discharge with home health services, PT/OT (if home) and follow up with his PCP and plan of care. Esther will transport via private vehicle with friends. CM will continue to offer support to patient and care team regarding discharge planning and disposition.
[2018-07-08 09:42] LABS: Bilirubin Small (Negative); Blood Negative (Negative); Clarity Cloudy; Glucose Negative (Negative); Ketones 15 mg/dL (Negative); Leukocyte Esterase Trace (Negative); Nitrite Negative (Negative)
[2018-07-08 09:52] LABS: Epithelial Cells Rare HPF (Negative); RBC Negative (0-2)
[2018-07-08 09:53] LABS: Bacteria Few HPF (Negative); C & S Indicated? C&S Done As Ordered; Casts Negative LPF (Negative); Crystals Moderate Amorphous HPF (Negative); Mucus Trace (Negative); Other Cells Rare Renal (Negative)
--- NOTE | 2018-07-08 10:23 | PT.INIE ---
Date of service: 07/08/18 Time of Service: 10:23 PT Notes Inpatient Physical Therapy Evaluation Date: 07/08/18 Referring Doctor: Gwyn Pena PT Orders: PT CONSULT: mobilize post op L hemiarthroplasty L hip for femoral neck fx. WBAT to L leg. Total hip precautions L Precautions: posterior L TONYA precautions, WBAT L LE Patient Profile/Admitting Diagnosis: Pt is a 73yr old s/p posterior total hip arthroplasty by Dr. Pena 07/07/18 PMHX: Parkinson's disease, chronic gait dysfunction, chronic back pain, coronary artery disease s/p non ST elevated myocardial infarction, hypertension, congestive heart failure, benign prostatic hypertrophy, tonsillectomy Social History/Home Situation: Lives alone in home in [place], baseline mobility independent gait with 4WW, assist with ADLS Equipment Owned/DME: 4WW, grab bars in bathroom, shower chair Subjective: Pt lying in bed, alert and agreeable to PT Consult. Objective: General Observation: IV R UE, griffin catheter, abduction pillow Mental Status: A& O x3 Pain: no c/o pain ROM: Right Upper Extremity: AAROM WNL Left Upper Extremity: AAROM WNL Right Lower Extremity: AAROM hip flexion 90, knee WNL, ankle WNL * Pt with tendency to sit in knee flexion but can extend knees Left Lower Extremity: AAROM hip flexion 90, knee WNL, ankle WNL * Pt with tendency to sit in knee flexion but can extend knees Strength: Right Upper Extremity: 4/5 throughout Left Upper Extremity: 4/5 throughout Right Lower Extremity: 3/5 hip flexion, 4/5 quad, 4/5 DF/PF Left Lower Extremity: hip NT, 4/5 quad, 4/5 DF/PF Bed Mobility/Transfers: Supine-sit: HOB 35 degrees, maxA with use of bedpad to get to sitting at edge of bed Sit-stand: maxAx2 with FWW Bed-chair: maxAx2 with FWW Stand-sit: maxAx2 Gait: maxAx2 with FWW 6 steps bed to chair, pt with flexed trunk due to back pain, flexed hips and knees, unable to stand fully erect. Narrow base of support with short shuffle steps to chair. Pt left up in chair with legs elevated, abduction pillow in place and fall alarm activated. Therex: initiated ankle pumps and quad sets x 20 reps in chair Precautions: Pt issued handouts and instructed in posterior total hip precautions, pt verbalized understanding Balance: Static Sitting: normal Dynamic Sitting: good Static Standing: poor Dynamic Standing: poor Special Tests: Mobility Limitations Standardized Measure [facility] AM-PAC 6 clicks Basic Mobility Inpatient Short Form: Raw Score: 9 Standardized Score: 30.55 CMS Score: 81.38% CMS Modifier: CM Informed Consent/Education: Patient instructed in purpose of PT consult and plan of care. Assessment: Pt is a 73yr old s/p posterior total hip arthroplasty by Dr. Pena 07/07/18 in setting of Parkinson's disease, chronic gait dysfunction, chronic back pain, coronary artery disease Patient presents with the following impairment level findings: edema left hip, decreased strength left hip, decreased strength with bed transfers requiring maxA to get to sitting positions, decreased strength with gait requiring 2 person max assist to get to standing position with FWW, decreased standing balance due to L TONYA and back pain/ weakness due to Parkinson's disease, decreased standing balance putting him at high risk for falls and requiring 2 person maxA to transfer to chair and perform gait with FWW. Pt has posterior hip precautions to maintain which make positioning more of a challenge in setting of Parkisnon's disease. Pt with decreased strength in upper and lower extremities and stiffness due to Parkinson's disease which makes mobility more difficult with posterior TONYA. Pt lives alone at baseline, pt will require a group home care facility for rehab prior to return to home setting to assist return to independent functional mobility. Pt has 4WW at home but would be much safer with FWW at discharge to reduce risk of falls. Impairments are contributing to the following functional limitations: AMPAC score CMS Score: 81.38% Patient is assessed as a High [id number] complexity based on the following: History: see above Examination: see above Presentation: evolving Decision Making: AMPAC score CMS Score: 81.38% Goals: Goals X1 week 1. Supine-Sit: minAx1 2. Sit-Supine: minAx1 3. Sit-Stand : modAx1 with FWW 4. Stand-Sit: minAx1 5. Bed-Chair: modAx1 with FWW 6. Chair-Bed: modAx1 with FWW 7. Gait: modax1 with FWW 30ft, WBAT L LE Plan of Care/Treatment Plan: 1-2x/day, 7 days/week x 1 week. Plan of care has been reviewed with the BREWING DIRECTOR providing the service under Physical Therapy direction. Initiate Physical Therapy intervention for strengthening, bed mobility, transfers, gait, stairs, balance training, use of assistive device. DISCHARGE RECOMMENDATIONS: rn long term care care facility for rehab, FWW for gait stability * Recommend OT consult in hospital setting for instruction in ADLS with adapative equipment. Needs to be ordered post operatively. TREATMENT CODE/TIME: 30 IE 10:13 G Codes in the area mobility of walking and moving around: current status [id number] CM projected status GP [id number]. Discharge status (if discharging) GP [id number] CM based on [facility] score CMS Score: 81.38% Liyah Alberts PT
[2018-07-08] MEDS: Multivitamin w/Minerals TAB 1 TAB PO (10:27)
--- NOTE | 2018-07-08 10:27 | IN_ITS ---
Date of service: 07/08/18 Time of Service: 10:23 PT Notes Inpatient Physical Therapy Evaluation Date: 07/08/18 Referring Doctor: Gwyn Pena PT Orders: PT CONSULT: mobilize post op L hemiarthroplasty L hip for femoral neck fx. WBAT to L leg. Total hip precautions L Precautions: posterior L TONYA precautions, WBAT L LE Patient Profile/Admitting Diagnosis: Pt is a 73yr old s/p posterior total hip arthroplasty by Dr. Pena 07/07/18 PMHX: Parkinson's disease, chronic gait dysfunction, chronic back pain, coronary artery disease s/p non ST elevated myocardial infarction, hypertension , congestive heart failure, benign prostatic hypertrophy, tonsillectomy Social History/Home Situation: Lives alone in home in [place], baseline mobility independent gait with 4WW, assist with ADLS Equipment Owned/DME: 4WW, grab bars in bathroom, shower chair Subjective: Pt lying in bed, alert and agreeable to PT Consult. Objective: General Observation: IV R UE, griffin catheter, abduction pillow Mental Status: A& O x3 Pain: no c/o pain ROM: Right Upper Extremity: AAROM WNL Left Upper Extremity: AAROM WNL Right Lower Extremity: AAROM hip flexion 90, knee WNL, ankle WNL * Pt with tendency to sit in knee flexion but can extend knees Left Lower Extremity: AAROM hip flexion 90, knee WNL, ankle WNL * Pt with tendency to sit in knee flexion but can extend knees Strength: Right Upper Extremity: 4/5 throughout Left Upper Extremity: 4/5 throughout Right Lower Extremity: 3/5 hip flexion, 4/5 quad, 4/5 DF/PF Left Lower Extremity: hip NT, 4/5 quad, 4/5 DF/PF Bed Mobility/Transfers: Supine-sit: HOB 35 degrees, maxA with use of bedpad to get to sitting at edge of bed Sit-stand: maxAx2 with FWW Bed-chair: maxAx2 with FWW Stand-sit: maxAx2 Gait: maxAx2 with FWW 6 steps bed to chair, pt with flexed trunk due to back pain, flexed hips and knees, unable to stand fully erect. Narrow base of support with short shuffle steps to chair. Pt left up in chair with legs elevated, abduction pillow in place and fall alarm activated. Therex: initiated ankle pumps and quad sets x 20 reps in chair Precautions: Pt issued handouts and instructed in posterior total hip precautions, pt verbalized understanding Balance: Static Sitting: normal Dynamic Sitting: good Static Standing: poor Dynamic Standing: poor Special Tests: Mobility Limitations Standardized Measure [facility] AM-PAC 6 clicks Basic Mobility Inpatient Short Form: Raw Score: 9 Standardized Score: 30.55 CMS Score: 81.38% CMS Modifier: CM Informed Consent/Education: Patient instructed in purpose of PT consult and plan of care. Assessment: Pt is a 73yr old s/p posterior total hip arthroplasty by Dr. Pena 07/07/18 in setting of Parkinson's disease, chronic gait dysfunction, chronic back pain, coronary artery disease Patient presents with the following impairment level findings: edema left hip, decreased strength left hip, decreased strength with bed transfers requiring maxA to get to sitting positions, decreased strength with gait requiring 2 person max assist to get to standing position with FWW, decreased standing balance due to L TONYA and back pain/ weakness due to Parkinson's disease, decreased standing balance putting him at high risk for falls and requiring 2 person maxA to transfer to chair and perform gait with FWW. Pt has posterior hip precautions to maintain which make positioning more of a challenge in setting of Parkisnon's disease. Pt with decreased strength in upper and lower extremities and stiffness due to Parkinson's disease which makes mobility more difficult with posterior TONYA. Pt lives alone at baseline, pt will require a longwall fore[facility] care facility for rehab prior to return to home setting to assist return to independent functional mobility. Pt has 4WW at home but would be much safer with FWW at discharge to reduce risk of falls. Impairments are contributing to the following functional limitations: AMPAC score CMS Score: 81.38% Patient is assessed as a High [id number] complexity based on the following: History: see above Examination: see above Presentation: evolving Decision Making: AMPAC score CMS Score: 81.38% Goals: Goals X1 week 1. Supine-Sit: minAx1 2. Sit-Supine: minAx1 3. Sit-Stand : modAx1 with FWW 4. Stand-Sit: minAx1 5. Bed-Chair: modAx1 with FWW 6. Chair-Bed: modAx1 with FWW 7. Gait: modax1 with FWW 30ft, WBAT L LE Plan of Care/Treatment Plan: 1-2x/day, 7 days/week x 1 week. Plan of care has been reviewed with the YARD CLERK providing the service under Physical Therapy direction. Initiate Physical Therapy intervention for strengthening, bed mobility, transfers, gait, stairs, balance training, use of assistive device. DISCHARGE RECOMMENDATIONS: [facility] care facility for rehab, FWW for gait stability * Recommend OT consult in hospital setting for instruction in ADLS with adapative equipment. Needs to be ordered post operatively. TREATMENT CODE/TIME: 30 IE 10:13 G Codes in the area mobility of walking and moving around: current status [id number] CM projected status GP [id number]. Discharge status (if discharging) GP [id number] CM based on [facility] score CMS Score: 81.38% Liyah Alberts PT
[2018-07-08] MEDS: Normal Saline Flush 10 ML SYR IVP ×3 (10:28→22:56)
--- NOTE | 2018-07-08 11:34 | PT.INTREAT ---
Date of service: 07/08/18 Time of Service: 11:34 PT Notes Inpatient Physical Therapy Treatment Note Date: 07/08/18 PRECAUTIONS: Fall precautions, Posterior total hip precautions, WBAT L LE SUBJECTIVE: Pt falling asleep in the chair, RN noted he had hypotensive blood pressure reading, pt agreeable to transfers back to bed. OBJECTIVE: General observation: IV RUE, abduction pillow for hip precautions Bed Mobility/Transfers: Sit-stand: maxAx2 with FWW Chair-bed: maxAx2 with FWW Stand-sit: maxAx2 sit-supine: HOB flat, maxAx2 Gait: maxA STEDY lift for transfer back to bed Balance: Static Sitting: normal Dynamic Sitting: good Static Standing: poor Dynamic Standing: poor ASSESSMENT: Pt was able to sit in recliner chair x1hr this morning, decreased blood pressures required transfers back to bed, pt falling asleep once positioned back in bed. Pt requiring maxA for all transfers and standing mobility at this time due to Parkinson's and post op posterior L TONYA. Anticipate he will require skilled nursing care facility for rehab prior to return to home setting. PLAN: Progress transfers Progress gait mobility TREATMENT CODE/TIME: 15min TAx1 11:33 Liyah Alberts PT
--- NOTE | 2018-07-08 11:39 | PTTR_ITS ---
Date of service: 07/08/18 Time of Service: 11:34 PT Notes Inpatient Physical Therapy Treatment Note Date: 07/08/18 PRECAUTIONS: Fall precautions, Posterior total hip precautions, WBAT L LE SUBJECTIVE: Pt falling asleep in the chair, RN noted he had hypotensive blood pressure reading, pt agreeable to transfers back to bed. OBJECTIVE: General observation: IV RUE, abduction pillow for hip precautions Bed Mobility/Transfers: Sit-stand: maxAx2 with FWW Chair-bed: maxAx2 with FWW Stand-sit: maxAx2 sit-supine: HOB flat, maxAx2 Gait: maxA STEDY lift for transfer back to bed Balance: Static Sitting: normal Dynamic Sitting: good Static Standing: poor Dynamic Standing: poor ASSESSMENT: Pt was able to sit in recliner chair x1hr this morning, decreased blood pressures required transfers back to bed, pt falling asleep once positioned back in bed. Pt requiring maxA for all transfers and standing mobility at this time due to Parkinson's and post op posterior L TONYA. Anticipate he will require [facility] care facility for rehab prior to return to home setting. PLAN: Progress transfers Progress gait mobility TREATMENT CODE/TIME: 15min TAx1 11:33 Liyah Alberts PT
--- NOTE | 2018-07-08 12:00 | NUR.NOTE ---
Nursing Note: Pt sitting up in recliner, hypotensive, denies pain, dizziness. PT assisted Pt back to chair. VS rechecked, see intervention on worklist. Cailin Hansen notified of hypotension. Will continue to monitor.
[2018-07-08] MEDS: Normal Saline 250 ML IV ×2 (13:22→19:14)
--- NOTE | 2018-07-08 13:59 | PGE_ITS ---
Assessment and Plan (1) Hip fracture: Current visit: Yes Status: Acute He is postop day #1 of a left hip fracture repair by Dr. Pena. The left hip fracture was the result of a mechanical fall at home. He has had multiple falls at home. He does have a history of Parkinson's with chronic gait dysfunction. He is working with physical therapy. He is agreeable to a short-term rehab upon discharge. Continue physical therapy and pain control. Orthopedics continues to follow along. (2) CHF (congestive heart failure): Current visit: Yes Status: Chronic History of systolic and diastolic congestive heart failure in the setting of previous NSTEMI, with LVEF of 30-35%. He typically takes Lasix daily. His blood pressures have been soft, he appears dry by physical exam. Continue to hold Lasix for now acute and provide gentle IV fluid hydration. Continue to monitor closely for signs of fluid overload. Continue to monitor blood pressure. Plan to resume Lasix when blood pressure stable, likely at a lower dose. (3) Parkinson disease: Current visit: Yes Status: Chronic Continue outpatient carbidopa/levodopa. (4) CAD (coronary artery disease): Current visit: Yes Status: Chronic With history of an NSTEMI in June 2014, status post stent placement, with cardiomyopathy with LVEF of 30-35%. He has been on his usual beta-jarrod dose, however, he did experience hypotension today. Antiplatelet therapy on hold at present time. Will defer to orthopedics on when to restart antiplatelet therapy. We will place his beta-jarrod on hold and continue to monitor his blood pressures. (5) DVT prophylaxis: Current visit: Yes Status: Acute Continue SCDs. (6) Discharge planning issues: Current visit: Yes Status: Acute He is a DNR/DNI. He will very likely need short-term rehab when he is ready for discharge from the hospital. He is agreeable and has been accepted at [facility]. This case was discussed with Dr. Wall who is in agreement. Subjective Interval history since last seen: Esther Castillo is a 73-year-old man with a past medical history significant for Parkinson's disease, chronic gait dysfunction with multiple previous falls, and a history of CAD with prior NSTEMI in 2013 and a cardiomyopathy with an LVEF of 30-35%, who presented as transfer from [facility] with a left hip fracture following a fall. He went on to have his left hip fracture surgically repaired by Dr. Pena on 07/07/2018. He is postop day #1 following unipolar prosthetic replacement of the left femoral head for femoral neck fracture. He is very sleepy today, however he does awaken easily to verbal stimuli. When questioned about pain, he denies any pain at all. Specifically no left hip pain. He denies chest pain, chest pressure, shortness of breath. He is eating and drinking, although he needs to be reminded to drink fluids. His blood pressure has been soft today. He is currently receiving a 250 cc bolus of normal saline. He did also receive tramadol. Exam Const General: cooperative and comfortable (He is lying in bed, he is very sleepy, awakens easily to verbal stimuli. He is in no acute distress. He answers questions appropriately. ) Orientation: alert and oriented x3 HENMT Head: normocephalic and atraumatic Face and sinus: dry mucous membranes Eyes Conjunctivae: conjunctivae normal Sclera: sclerae normal Pupils: PERRL Neck Neck: no JVD Resp Effort & Inspection: normal respiratory effort Auscultation: clear to auscultation bilaterally, no rales, no rhonchi and no wheezes Cardio Rate: regular rate Rhythm: regular rhythm Heart Sounds: S1 normal, S2 normal, no click, no gallops, no murmurs and no rubs GI Palpation: soft, no hepatosplenomegaly, no masses and nontender Extrem General: no clubbing, cyanosis or edema (DP and PT pulses palpable bilaerally. Surgical dressing to left hip clean, dry and intact. No edema to the left thigh. No ecchymosis noted.) Objective Objective Clinical Data: Abnormal lab results 07/06/18 07/08/18 07/08/18 Range/Units 22:22 06:25 06:25 WBC 10.87 H (4.4-10.8) k/cumm RBC 3.95 L (4.50-6.00) m/cumm MCV 102.8 H (80-95) fL MCH 34.4 H (27.0-33.0) pg MPV 11.3 H (8.0-11.0) fL Chloride 108 H (98-107) mmol/L BUN 29 H (7-18) mg/dL Glucose 141 H (70-100) mg/dL Calcium 8.0 L (8.5-10.1) mg/dL Urine Protein Trace H (Negative) mg/dL Urine Ketones 15 H (Negative) mg/dL Urine Bilirubin Small H (Negative) Urine Urobilinogen 1.0 H (Up TO 0.2) EU/dL Ur Leukocyte Esterase Trace H (Negative) Vital Signs Temperature 36.9 C 07/08/18 11:30 Temperature Source Tympanic 07/08/18 11:30 Pulse 70 07/08/18 13:23 Pulse Rhythm Regular 07/08/18 09:35 Respiratory Rate 20 07/08/18 13:23 Respiratory Effort Non-Labored 07/08/18 09:35 Respiratory Depth Shallow 07/08/18 09:35 Respiratory Pattern Normal 07/08/18 09:35 Blood Pressure 89/54 L 07/08/18 13:23 Pulse Oximetry 92 L 07/08/18 13:23 Respiratory End-tidal CO2 25 07/07/18 17:35 Oxygen Delivery Method Room Air 07/08/18 13:23 Oxygen Flow Rate 0 07/08/18 13:23 Pain Level 0 07/08/18 11:27 Comment 07/08/18 12:23 Intake & Output 07/07/18 07/08/18 07/08/18 23:59 11:59 23:59 Intake Total 1115 / 1115 1890.000 / 1890.000 Output Total 1350 / 1350 180 / 180 Balance -235 / -235 1890.000 / 1890.000 -180 / -180 Intake: IV 615 / 615 1550.000 / 1550.000 Oral 500 / 500 340 / 340 Output: Urine 1150 / 1150 180 / 180 Estimated Blood Loss 200 / 200 Other: Urine Color Bright Red Dark Red [place] Urine Appearance Hematuria Hematuria Clear Clots Clots Hematuria Urine Odor Normal Comment large incontinence incontinent of urine. voiding in urinal w/promting Emesis Description None Voiding Methods Incontinent Diaper Incontinent Laboratory Results WBC 10.87 k/cumm (4.4-10.8) H 07/08/18 06:25 RBC 3.95 m/cumm (4.50-6.00) L 07/08/18 06:25 Hgb 13.6 g/dL (13.5-17.5) 07/08/18 06:25 Hct 40.6 % (40.0-50.0) 07/08/18 06:25 MCV 102.8 fL (80-95) H 07/08/18 06:25 MCH 34.4 pg (27.0-33.0) H 07/08/18 06:25 MCHC 33.5 g/dL (32.0-36.0) 07/08/18 06:25 RDW 12.4 % (11.8-14.1) 07/08/18 06:25 Plt Count 134 x1000/uL (130-400) 07/08/18 06:25 MPV 11.3 fL (8.0-11.0) H 07/08/18 06:25 PT 11.2 sec (9.3-10.8) H 07/06/18 06:55 INR 1.1 (1.0-3.5) 07/06/18 06:55 Sodium 144 mmol/L (136-145) 07/08/18 06:25 Potassium 3.7 mmol/L (3.5-5.1) 07/08/18 06:25 Chloride 108 mmol/L (98-107) H 07/08/18 06:25 Carbon Dioxide 27.1 mmol/L (21.0-32.0) 07/08/18 06:25 Anion Gap 8.9 mmol/L (3-11) 07/08/18 06:25 BUN 29 mg/dL (7-18) H 07/08/18 06:25 Creatinine 1.25 mg/dL (0.70-1.30) 07/08/18 06:25 Estimated GFR/1.73 m2 56.94 (mL/min/1.73m2) 07/08/18 06:25 Glucose 141 mg/dL (70-100) H 07/08/18 06:25 Calcium 8.0 mg/dL (8.5-10.1) L 07/08/18 06:25 Magnesium 2.0 mg/dL (1.8-2.4) 07/08/18 06:25 Creatine Kinase 281 U/L (39-308) 07/06/18 06:55 Troponin I 0.02 ng/mL (0.00-0.06) 07/06/18 06:55 LDL Cholesterol Direct 74 mg/dL (<100) 01/30/18 14:18 TSH 2.70 uIU/mL (0.358-3.74) 01/30/18 14:18 Urine Color Eleanor (Yellow) 07/06/18 22:22 Urine Clarity Cloudy 07/06/18 22:22 Urine pH 6.0 (5-8) 07/06/18 22:22 Ur Specific [place] 1.020 (1.005-1.025) 07/06/18 22:22 Urine Protein Trace mg/dL (Negative) H 07/06/18 22:22 Urine Ketones 15 mg/dL (Negative) H 07/06/18 22:22 Urine Blood Negative (Negative) 07/06/18 22:22 Urine Nitrite Negative (Negative) 07/06/18 22:22 Urine Bilirubin Small (Negative) H 07/06/18 22:22 Urine Urobilinogen 1.0 EU/dL (Up TO 0.2) H 07/06/18 22:22 Ur Leukocyte Esterase Trace (Negative) H 07/06/18 22:22 Urine RBC Negative (0-2) 07/06/18 22:22 Urine WBC 10-20 HPF (0-5) 07/06/18 22:22 Ur Epithelial Cells Rare HPF (Negative) 07/06/18 22:22 Urine Crystals Moderate amorphous HPF (Negative) 07/06/18 22:22 Urine Bacteria Few HPF (Negative) 07/06/18 22:22 Urine Casts Negative LPF (Negative) 07/06/18 22:22 Urine Mucus Trace (Negative) 07/06/18 22:22 Urine Other Rare renal (Negative) 07/06/18 22:22 Ur Culture Indicated? C&s done as ordered 07/06/18 22:22 Urine Glucose Negative mg/dL (Negative) 07/06/18 22:22 Patient ABO/Rh A Positive 07/07/18 14:45 Antibody Screen Negative 07/07/18 14:45
--- NOTE | 2018-07-08 14:38 | PGE_ITS ---
Assessment and Plan (1) Hip fracture: Start date: 07/05/18 Start time: 14:43 Current visit: Yes Status: Acute Assessment: Stable postop day #1 unipolar prosthetic replacement of the left femoral head for femoral neck fracture. Plan: Mobilize per protocol with physical therapy. DC IV fluids when eating and drinking well and his blood pressures are stabilized. Will minimize narcotics. Will probably need alf facility for short period of time as he recovers from his hip fracture. Subjective Patient reports: no new complaints, feels better, tolerating a regular diet and voiding w/o difficulty Exam Narrative Exam Narrative: He has normal sensation and circulation to his left foot. He is able to actively dorsiflex and plantarflex his left ankle. He has been voiding since his Lee was DC'd. He is afebrile,vital signs are stable. Hemoglobin 13.6 g. He got up and took a few steps with physical therapy today. He got a little lightheaded, but is feeling well now. Objective Objective Clinical Data: Abnormal lab results 07/06/18 07/08/18 07/08/18 Range/Units 22:22 06:25 06:25 WBC 10.87 H (4.4-10.8) k/cumm RBC 3.95 L (4.50-6.00) m/cumm MCV 102.8 H (80-95) fL MCH 34.4 H (27.0-33.0) pg MPV 11.3 H (8.0-11.0) fL Chloride 108 H (98-107) mmol/L BUN 29 H (7-18) mg/dL Glucose 141 H (70-100) mg/dL Calcium 8.0 L (8.5-10.1) mg/dL Urine Protein Trace H (Negative) mg/dL Urine Ketones 15 H (Negative) mg/dL Urine Bilirubin Small H (Negative) Urine Urobilinogen 1.0 H (Up TO 0.2) EU/dL Ur Leukocyte Esterase Trace H (Negative) Vital Signs Temperature 36.9 C 07/08/18 11:30 Temperature Source Tympanic 07/08/18 11:30 Pulse 70 07/08/18 13:23 Pulse Rhythm Regular 07/08/18 09:35 Respiratory Rate 20 07/08/18 13:23 Respiratory Effort Non-Labored 07/08/18 09:35 Respiratory Depth Shallow 07/08/18 09:35 Respiratory Pattern Normal 07/08/18 09:35 Blood Pressure 89/54 L 07/08/18 13:23 Pulse Oximetry 92 L 07/08/18 13:23 Respiratory End-tidal CO2 25 07/07/18 17:35 Oxygen Delivery Method Room Air 07/08/18 13:23 Oxygen Flow Rate 0 07/08/18 13:23 Pain Level 0 07/08/18 11:27 Comment 07/08/18 12:23 Intake & Output 07/07/18 07/08/18 07/08/18 23:59 11:59 23:59 Intake Total 1115 / 1115 1890.000 / 1890.000 Output Total 1350 / 1350 180 / 180 Balance -235 / -235 1890.000 / 1890.000 -180 / -180 Intake: IV 615 / 615 1550.000 / 1550.000 Oral 500 / 500 340 / 340 Output: Urine 1150 / 1150 180 / 180 Estimated Blood Loss 200 / 200 Other: Urine Color Bright Red Dark Red [place] Urine Appearance Hematuria Hematuria Clear Clots Clots Hematuria Urine Odor Normal Comment large incontinence incontinent of urine. voiding in urinal w/promting Emesis Description None Voiding Methods Incontinent Diaper Incontinent Laboratory Results WBC 10.87 k/cumm (4.4-10.8) H 07/08/18 06:25 RBC 3.95 m/cumm (4.50-6.00) L 07/08/18 06:25 Hgb 13.6 g/dL (13.5-17.5) 07/08/18 06:25 Hct 40.6 % (40.0-50.0) 07/08/18 06:25 MCV 102.8 fL (80-95) H 07/08/18 06:25 MCH 34.4 pg (27.0-33.0) H 07/08/18 06:25 MCHC 33.5 g/dL (32.0-36.0) 07/08/18 06:25 RDW 12.4 % (11.8-14.1) 07/08/18 06:25 Plt Count 134 x1000/uL (130-400) 07/08/18 06:25 MPV 11.3 fL (8.0-11.0) H 07/08/18 06:25 PT 11.2 sec (9.3-10.8) H 07/06/18 06:55 INR 1.1 (1.0-3.5) 07/06/18 06:55 Sodium 144 mmol/L (136-145) 07/08/18 06:25 Potassium 3.7 mmol/L (3.5-5.1) 07/08/18 06:25 Chloride 108 mmol/L (98-107) H 07/08/18 06:25 Carbon Dioxide 27.1 mmol/L (21.0-32.0) 07/08/18 06:25 Anion Gap 8.9 mmol/L (3-11) 07/08/18 06:25 BUN 29 mg/dL (7-18) H 07/08/18 06:25 Creatinine 1.25 mg/dL (0.70-1.30) 07/08/18 06:25 Estimated GFR/1.73 m2 56.94 (mL/min/1.73m2) 07/08/18 06:25 Glucose 141 mg/dL (70-100) H 07/08/18 06:25 Calcium 8.0 mg/dL (8.5-10.1) L 07/08/18 06:25 Magnesium 2.0 mg/dL (1.8-2.4) 07/08/18 06:25 Creatine Kinase 281 U/L (39-308) 07/06/18 06:55 Troponin I 0.02 ng/mL (0.00-0.06) 07/06/18 06:55 LDL Cholesterol Direct 74 mg/dL (<100) 01/30/18 14:18 TSH 2.70 uIU/mL (0.358-3.74) 01/30/18 14:18 Urine Color Eleanor (Yellow) 07/06/18 22:22 Urine Clarity Cloudy 07/06/18 22:22 Urine pH 6.0 (5-8) 07/06/18 22:22 Ur Specific [place] 1.020 (1.005-1.025) 07/06/18 22:22 Urine Protein Trace mg/dL (Negative) H 07/06/18 22:22 Urine Ketones 15 mg/dL (Negative) H 07/06/18 22:22 Urine Blood Negative (Negative) 07/06/18 22:22 Urine Nitrite Negative (Negative) 07/06/18 22:22 Urine Bilirubin Small (Negative) H 07/06/18 22:22 Urine Urobilinogen 1.0 EU/dL (Up TO 0.2) H 07/06/18 22:22 Ur Leukocyte Esterase Trace (Negative) H 07/06/18 22:22 Urine RBC Negative (0-2) 07/06/18 22:22 Urine WBC 10-20 HPF (0-5) 07/06/18 22:22 Ur Epithelial Cells Rare HPF (Negative) 07/06/18 22:22 Urine Crystals Moderate amorphous HPF (Negative) 07/06/18 22:22 Urine Bacteria Few HPF (Negative) 07/06/18 22:22 Urine Casts Negative LPF (Negative) 07/06/18 22:22 Urine Mucus Trace (Negative) 07/06/18 22:22 Urine Other Rare renal (Negative) 07/06/18 22:22 Ur Culture Indicated? C&s done as ordered 07/06/18 22:22 Urine Glucose Negative mg/dL (Negative) 07/06/18 22:22 Patient ABO/Rh A Positive 07/07/18 14:45 Antibody Screen Negative 07/07/18 14:45
[2018-07-08] MEDS: Atorvastatin 40 MG TAB PO (19:14)
[2018-07-08] MEDS: Finasteride 5 MG TAB PO (19:15)
--- NOTE | 2018-07-09 00:07 | NUR.NOTE ---
Nursing Note: Day shift nurse hung a bag of fluid on this patient at 1435 but did not scan the bag. Fluid is running at this time but the I&O does not capture it
[2018-07-09] MEDS: Normal Saline Flush 10 ML SYR IVP ×3 (04:07→15:57)
[2018-07-09] MEDS: Ketorolac 30 MG/ML VIAL IVP ×3 (04:08→15:58)
[2018-07-09 04:45] VITALS: BP 115/68; PULSE 78; RESP 16; TEMP 35.5; O2SAT 92
[2018-07-09 07:03] LABS: HCT 34.4 % (40.0-50.0); HGB 11.3 g/dL (13.5-17.5); Mean Corp. HGB Concentration 32.8 g/dL (32.0-36.0); Mean Corpuscular Hemoglobin 34.3 pg (27.0-33.0); Mean Corpuscular Volume 104.6 fL (80-95); Mean Platelet Volume 11.3 fL (8.0-11.0); Platelet Count 122 x1000/uL (130-400); RBC 3.29 m/cumm (4.50-6.00); RBC Distribution Width 12.3 % (11.8-14.1); White Blood Cell Count 7.25 k/cumm (4.4-10.8)
[2018-07-09 07:29] VITALS: BP 110/64; PULSE 79; RESP 20; TEMP 36.6; O2SAT 92
[2018-07-09] MEDS: Pantoprazole 40 MG TABCR PO (10:08)
[2018-07-09] MEDS: Docusate Sodium 100 MG CAP PO ×2 (10:08→20:13)
[2018-07-09] MEDS: Carbidopa 25/Levodopa 100 TAB PO ×4 (10:08→20:12)
[2018-07-09] MEDS: Multivitamin w/Minerals TAB 1 TAB PO (10:08)
--- NOTE | 2018-07-09 10:14 | PDOC.CMPRO ---
- If Service Date Differs Date of service: 07/09/18 Time of Service: 10:14 Care Management Progress Note S/O: Esther is lying in bed when CM visits this morning. He is engaged in conversation and is talkative but keeps his eyes closed while speaking to CM. Esther is post op day 1 for surgical repair of his left hip. His griffin has been removed, he reports that he is voiding, and he denies pain. PT and OT are due to work with Esther today and evaluate his ability with ambulation. Esther reports that he uses a walker at home and has fallen multiple times over the course of the year. CM and patient discussed the fact that he resides alone, is unsteady on his feet at baseline, and he might benefit from a short term rehab stay at a local SNF. Esther initially is not open to the idea but does eventually agree that this might be a good option. CM faxed referrals to [facility], [facility], [facility], [facility], and the [facility]. [facility] has offered Esther a bed at discharge and Esther has accepted. Esther has a walker so will not be needing DME upon discharge. Esther reports that he works with [employer] at [facility] but has no other community services. A: 73 year old male admitted post fall for subcapital left hip fracture. P: Esther will discharge to [facility] for short term rehab when medically ready per MD. Anticipate patient will discharge with home health services, PT/OT (if home) and follow up with his PCP and plan of care. Esther will transport via private vehicle with friends. CM will continue to offer support to patient and care team regarding discharge planning and disposition.
--- NOTE | 2018-07-09 11:14 | PDOC.CMPRO ---
- If Service Date Differs Date of service: 07/09/18 Time of Service: 11:14 Care Management Progress Note S/O: Esther is sitting in his chair when CM visits this morning. He is engaged in conversation and is talkative He reports that he is a little frustrated because he needed a stedy lift and two assist to move from the bed to the chair. He reports that he is more comfortable sitting up in the bed and denies pain at this time. CM reviews the plan of care regarding discharge, and Esther agrees that short term rehab at [facility] is a good idea. He is adamant however, that this is a short term stay and he will be returning to his home in two weeks. Esther reports that his sister, Laura Jacobs ([phone]) visits him at home a couple of times per month to deliver him food and clean his house. CM asked Esther for permission to phone Laura regarding transportation, once a discharge date is in place. Esther agrees. A: 73 year old male admitted post fall for subcapital left hip fracture. P: Esther will discharge to [facility] for short term rehab when medically ready per MD. Transportation is TBD; Esther reports that his sister might be able to transport him however question w/c van necessity. CM will continue to offer support to patient and care team regarding discharge planning and disposition.
--- NOTE | 2018-07-09 11:31 | CMPROGNOTE_ITS ---
- If Service Date Differs Date of service: 07/09/18 Time of Service: 11:14 Care Management Progress Note S/O: Esther is sitting in his chair when CM visits this morning. He is engaged in conversation and is talkative He reports that he is a little frustrated because he needed a stedy lift and two assist to move from the bed to the chair. He reports that he is more comfortable sitting up in the bed and denies pain at this time. CM reviews the plan of care regarding discharge, and Esther agrees that short term rehab at [facility] is a good idea. He is adamant however , that this is a short term stay and he will be returning to his home in two weeks. Esther reports that his sister, Laura Jacobs ([phone]) visits him at home a couple of times per month to deliver him food and clean his house. CM asked Esther for permission to phone Laura regarding transportation, once a discharge date is in place. Esther agrees. A: 73 year old male admitted post fall for subcapital left hip fracture. P: Esther will discharge to [facility] for short term rehab when medically ready per MD. Transportation is TBD; Esther reports that his sister might be able to transport him however question w/c van necessity. CM will continue to offer support to patient and care team regarding discharge planning and disposition.
[2018-07-09 11:51] VITALS: BP 106/61; PULSE 74; RESP 20; TEMP 37.1; O2SAT 93
--- NOTE | 2018-07-09 12:00 | OTIE_ITS ---
Occupational Therapy Notes Inpatient Occupational Therapy Evaluation Date: 07/09/18 Referring Doctor:Shannon Wall MD OT Orders: FX hip w repair, freq falls Precautions:Posterior L TONYA precautions, WBAT L LE PATIENT PROFILE/ADMITTING DIAGNOSIS: Pt is a 73 year old male s/p posterior total hip arthroplasty performed by Dr. Pena 07/07/18. Past Medical History:Parkinson's disease, chronic gait dysfunction, chronic back pain, coronary artery disease s/p non ST elevated myocardial infarction, hypertension, congestive heart failure, benign prostatic hypertrophy, tonsillectomy Current Functional Limitations: Decreased functional mobility for ADLs, decreased activity tolerance, decreased (B) UE ROM, Decreased (B) UE strength, decreased (I) in in ADL routine. Social History/Home Situation: Pt reports that he lives alone in home in [place], baseline ADLs was (A) with groceries and driving. Pt reports that his home is a 1st floor bed/bath with grab bars and a walk in shower. Pt reports that he was able to perform dressing but would sometimes leave his clothes on for 2-3 days before being able to change them. He reports that he used a 4WW for functional mobility. Equipment owned/DME: 4WW, grab bars in bathroom and shower chair SUBJECTIVE: Pt lying in bed when OT arrived. Pt reports that he didn't sleep well last night. He states that he has a fear of going numb. However reports that he is not experiencing any numbness just doesn't want to get that way. Pt agreeable to OT session/consult. Pt reports that he feels like his brain is unable to make the demands that he needs it to right now. OBJECTIVE: General Observation: IV R UE, abduction pillow Mental Status: A&Ox3 Pain: no c/o pain ROM: RUE Shoulder flexion ~70*, Elbow/ wrist WFL L UE Shoulder flexion ~70*, Elbow/wrist WFL STRENGTH: RUE biceps 4/5, public health policy analyst 4/5 LUE biceps 4/5, public health policy analyst 4/5 SENSATION: Pt reports no numbness or tingling in (B) UE. FUNCTIONAL MOBILITY/ADLS: Transfers Supine-sit Max (A) x2 Sit-Stand MAx (A) x2, Steady Stand-sit Max (A) x2, Steady Bed-Chair Max (A)x2, Steady Pt education: Pt educated on the use of posterior hip precations with written illustrated handout provided to pt. Pt also educated on adaptive equipment in hip kit for ADL routine. Pt receptive to information provided but denies need to get dressed, bath or toilet during consult. BATHING: Pt educated on the importance of long handled sponge to be used while pt is sitting in the shower to adhere to posterior hip precautions. DRESSING: Pt educated on dressing techniques for posterior hip precautions in the sitting position. Dressing LE: Pt educated in use of dressing hook, racher and sock aid. Pt required max (A) for placing sock over sock aid and on to pt's foot. Pt with minimal verbal cues was able to pull sock aid up with increased (I) in donning socks. EATING: When OT arrived, LEASE BUYER was feeding pt his breakfast. Pt reports that he is unable to feed himself at this time. BALANCE: Static sitting Good Dynamic Sitting Good Static Standing Poor Dynamic Standing Poor SPECIAL TESTS: Daily Activity Limitations Standardized Measure [facility] AM -PAC ?6 clicks? Daily Activity Inpatient Short Form: Raw score: 14 Standardized score: 33.39 CMS score: 59.67 % CMS modifier: CK INFORMED CONSENT/EDUCATION: Pt instructed in purpose of OT Consult and plan of care. ASSESSMENT: Patient is a 73-year-old male referred to occupational therapy services s/p posterior total hip arthroplasty performed by Dr. Pena 07/07/18 with of Parkinson's disease, chronic gait dysfunction, chronic back pain, coronary artery disease. Patient presents with clinical signs and symptoms consistent with this dx, as demonstrated by the following impairment level findings: Decreased UE strength which decreased pt (I) in functional mobility, decreased functional activity tolerance, functional mobility requires max (A) x2 with use of Steady, decreased ability to preform ADLs with stiffness due to Parkinsons, decreased (B) hand use to perform 2 step activities, decreased fine motor function. Pt has posterior hip precautions which increased difficulty with dx of Parkinsons to be able to perform ADLs without assistance. Recommend that pt go to [facility] facility before returning home to increase (I) in ADL routine. AMPAC score 14, CMS score 59.67% Patient is assessed as a high [id number] complexity based on the following: History: See above Examination: see above Presentation: Evolving Decision Making: AMPAC score 14, CMS score 59.67% GOALS Goals x1 week 1. Transfers Mod (A), FWW 2. Dressing sitting in chair Mod (A) with moderate verbal cues for UE/LE don and doff of clothing with use of adaptive equipment. 3. Bathing sitting on bench/chair Mod (A) with use of adaptive equipment and ideal demonstration of posterior hip precautions. 4. Toileting on commode, mod (A) 5. Eating Min (A) to feed himself with minimal verbal cues. PLAN OF CARE/TREATMENT PLAN: 1x/day, 5 days/ week x 1week Initiate Occupational Therapy Services for bathing, dressing, grooming, toileting, eating, transfer training. DISCHARGE RECOMMENDATIONS [facility] TREATMENT TIME/MINUTES/CODES 40 min IE, Self care x1, 08:35 G Codes in the area of self- : washing oneself, toileting, dressing, eating and drinking, current status [id number] CK projected status GP [id number]. Vernell Lopez OTR/L
--- NOTE | 2018-07-09 14:31 | PGE_ITS ---
Assessment and Plan (1) Hip fracture: Current visit: Yes Status: Acute He is postop day #2 of a left hip fracture repair by Dr. Pena. The left hip fracture was the result of a mechanical fall at home. He has had multiple falls at home. He does have a history of Parkinson's with chronic gait dysfunction. He is working with physical therapy. He is agreeable to a short-term rehab upon discharge. Continue physical therapy and pain control. Orthopedics continues to follow along. (2) CHF (congestive heart failure): Current visit: Yes Status: Chronic History of systolic and diastolic congestive heart failure in the setting of previous NSTEMI, with LVEF of 30-35%. He typically takes Lasix daily. His blood pressures were low yesterday, blood pressure has improved today after receiving some gentle IV hydration yesterday. His IV fluids have been discontinued. His lasix has been on hold. Continue to monitor closely for signs of fluid overload. Continue to monitor blood pressure. Plan to resume Lasix when blood pressure stable, likely at a lower dose. (3) Parkinson disease: Current visit: Yes Status: Chronic Continue outpatient carbidopa/levodopa. (4) CAD (coronary artery disease): Current visit: Yes Status: Chronic With history of an NSTEMI in June 2014, status post stent placement, with cardiomyopathy with LVEF of 30-35%. He has been on his usual beta-jarrod dose, however, he did experience hypotension today. Antiplatelet therapy on hold at present time. Will defer to orthopedics on when to restart antiplatelet therapy. His beta-jarrod has been on hold due to low blood pressures. Plan to resume his metoprolol at a lower dose. Continue to monitor blood pressure and heart rate. (5) DVT prophylaxis: Current visit: Yes Status: Acute Continue SCDs. (6) Discharge planning issues: Current visit: Yes Status: Acute He is a DNR/DNI. He will very likely need short-term rehab when he is ready for discharge from the hospital. He is agreeable and has been accepted at [facility]. This case was discussed with Dr. Wall who is in agreement. Subjective Interval history since last seen: Esther Castillo is a 73-year-old man with a past medical history significant for Parkinson's disease, chronic gait dysfunction with multiple previous falls, and a history of CAD with prior NSTEMI in 2013 and a cardiomyopathy with an LVEF of 30-35%, who presented as transfer from [facility] with a left hip fracture following a fall. He went on to have his left hip fracture surgically repaired by Dr. Pena on 07/07/2018. He is postop day #2 following unipolar prosthetic replacement of the left femoral head for femoral neck fracture. His blood pressures were low yesterday, he received IV fluid boluses with improvement in his blood pressure. He was also very sleepy yesterday, possibly related to the tramadol that he received for pain. Today, he is sitting up in the chair he is awake and conversant. He continues to deny pain in his left hip. He verbalizes concern related to the difficulty that he is having getting around. He is working with physical therapy. We discussed that he will very likely need a short-term rehab stay prior to returning home, which she is agreeable to. He denies any chest pain/pressure, palpitations, shortness of breath, cough, wheeze. He is eating and drinking and tolerating his diet without nausea. He reports having a bowel movement today. He denies any dysuria or difficulty with voiding. He is incontinent. He denies any other concerns. Exam Const General: cooperative, comfortable (He is sitting up in the chair, watching the television.) and no acute distress Nutritional Appearance: thin Orientation: alert and oriented x3 HENMT Head: normocephalic and atraumatic Mouth: moist mucous membranes Teeth and gingiva: poor dentition Eyes Conjunctivae: conjunctivae normal (Noninjected.) Sclera: sclerae normal (Nonicteric.) Neck Neck: supple and no JVD Resp Effort & Inspection: normal respiratory effort (Respirations even and unlabored. ) Auscultation: clear to auscultation bilaterally, no rales, no rhonchi and no wheezes Cardio Rate: regular rate and not tachycardic Rhythm: regular rhythm Heart Sounds: S1 normal, S2 normal, no gallops, no murmurs and no rubs Pulses: normal peripheral pulses GI Palpation: soft, no masses and nontender Auscultation: normal bowel sounds Extrem General: no clubbing, cyanosis or edema (No edema noted to the left lower extremity. Peripheral pulses are palpable bilaterally.) Objective Objective Clinical Data: Abnormal lab results 07/09/18 Range/Units 06:50 RBC 3.29 L (4.50-6.00) m/cumm Hgb 11.3 L D (13.5-17.5) g/dL Hct 34.4 L (40.0-50.0) % MCV 104.6 H (80-95) fL MCH 34.3 H (27.0-33.0) pg Plt Count 122 L (130-400) x1000/uL MPV 11.3 H (8.0-11.0) fL Vital Signs Temperature 35.5 C L 07/09/18 04:45 Temperature Source Tympanic 07/09/18 04:45 Pulse 78 07/09/18 04:45 Pulse Rhythm Irregular 07/09/18 02:20 Respiratory Rate 16 07/09/18 04:45 Respiratory Effort 07/09/18 02:20 Respiratory Depth Normal 07/09/18 02:20 Respiratory Pattern Normal 07/09/18 02:20 Blood Pressure 115/68 07/09/18 04:45 Pulse Oximetry 92 L 07/09/18 04:45 Respiratory End-tidal CO2 25 07/07/18 17:35 Oxygen Delivery Method Room Air 07/09/18 04:45 Oxygen Flow Rate 0 07/09/18 04:45 Pain Level 0 07/09/18 10:09 Comment 07/09/18 04:45 Intake & Output 07/08/18 07/09/18 07/09/18 23:59 11:59 23:59 Intake Total 214.333 / 2149.333 100 / 100 250 / 250 Output Total 180 / 180 200 / 200 Balance 1968.333 / 1968.333 -100 / -100 250 / 250 Intake: IV 190.333 / 190.333 Oral 240 / 240 100 / 100 250 / 250 Output: Urine 180 / 180 200 / 200 Other: Urine Color [place] Dark Eleanor Urine Appearance Clear Clear Hematuria Clots Urine Odor Normal Comment voiding in urinal w/promting heavy diaper Stool Size Large Stool Characteristics Formed Voiding Methods Urinal Laboratory Results WBC 7.25 k/cumm (4.4-10.8) D 07/09/18 06:50 RBC 3.29 m/cumm (4.50-6.00) L 07/09/18 06:50 Hgb 11.3 g/dL (13.5-17.5) L D 07/09/18 06:50 Hct 34.4 % (40.0-50.0) L 07/09/18 06:50 MCV 104.6 fL (80-95) H 07/09/18 06:50 MCH 34.3 pg (27.0-33.0) H 07/09/18 06:50 MCHC 32.8 g/dL (32.0-36.0) 07/09/18 06:50 RDW 12.3 % (11.8-14.1) 07/09/18 06:50 Plt Count 122 x1000/uL (130-400) L 07/09/18 06:50 MPV 11.3 fL (8.0-11.0) H 07/09/18 06:50 PT 11.2 sec (9.3-10.8) H 07/06/18 06:55 INR 1.1 (1.0-3.5) 07/06/18 06:55 Sodium 144 mmol/L (136-145) 07/08/18 06:25 Potassium 3.7 mmol/L (3.5-5.1) 07/08/18 06:25 Chloride 108 mmol/L (98-107) H 07/08/18 06:25 Carbon Dioxide 27.1 mmol/L (21.0-32.0) 07/08/18 06:25 Anion Gap 8.9 mmol/L (3-11) 07/08/18 06:25 BUN 29 mg/dL (7-18) H 07/08/18 06:25 Creatinine 1.25 mg/dL (0.70-1.30) 07/08/18 06:25 Estimated GFR/1.73 m2 56.94 (mL/min/1.73m2) 07/08/18 06:25 Glucose 141 mg/dL (70-100) H 07/08/18 06:25 Calcium 8.0 mg/dL (8.5-10.1) L 07/08/18 06:25 Magnesium 2.0 mg/dL (1.8-2.4) 07/08/18 06:25 Creatine Kinase 281 U/L (39-308) 07/06/18 06:55 Troponin I 0.02 ng/mL (0.00-0.06) 07/06/18 06:55 LDL Cholesterol Direct 74 mg/dL (<100) 01/30/18 14:18 TSH 2.70 uIU/mL (0.358-3.74) 01/30/18 14:18 Urine Color Eleanor (Yellow) 07/06/18 22:22 Urine Clarity Cloudy 07/06/18 22:22 Urine pH 6.0 (5-8) 07/06/18 22:22 Ur Specific [place] 1.020 (1.005-1.025) 07/06/18 22:22 Urine Protein Trace mg/dL (Negative) H 07/06/18 22:22 Urine Ketones 15 mg/dL (Negative) H 07/06/18 22:22 Urine Blood Negative (Negative) 07/06/18 22:22 Urine Nitrite Negative (Negative) 07/06/18 22:22 Urine Bilirubin Small (Negative) H 07/06/18 22:22 Urine Urobilinogen 1.0 EU/dL (Up TO 0.2) H 07/06/18 22:22 Ur Leukocyte Esterase Trace (Negative) H 07/06/18 22:22 Urine RBC Negative (0-2) 07/06/18 22:22 Urine WBC 10-20 HPF (0-5) 07/06/18 22:22 Ur Epithelial Cells Rare HPF (Negative) 07/06/18 22:22 Urine Crystals Moderate amorphous HPF (Negative) 07/06/18 22:22 Urine Bacteria Few HPF (Negative) 07/06/18 22:22 Urine Casts Negative LPF (Negative) 07/06/18 22:22 Urine Mucus Trace (Negative) 07/06/18 22:22 Urine Other Rare renal (Negative) 07/06/18 22:22 Ur Culture Indicated? C&s done as ordered 07/06/18 22:22 Urine Glucose Negative mg/dL (Negative) 07/06/18 22:22 Patient ABO/Rh A Positive 07/07/18 14:45 Antibody Screen Negative 07/07/18 14:45
[2018-07-09 16:04] VITALS: BP 123/79; PULSE 79; RESP 22; TEMP 37.1; O2SAT 94
--- NOTE | 2018-07-09 16:22 | PT.INTREAT ---
Date of service: 07/09/18 Time of Service: 16:22 PT Notes Inpatient Physical Therapy Treatment Note Date: 07/09/18 PRECAUTIONS: WBAT on L, posterior total hip precautions SUBJECTIVE: Esther states that he does not do much walking at baseline, mostly short distances around his home. OBJECTIVE: PAIN: No complaints of pain BED MOBILITY/TRANSFERS Sit-stand: Mod A with STEDY Stand-sit: Min A with STEDY Static stand and STEDY x5 minutes with SBA THEREX: Patient performed weight shifting to L and R while standing in STEDY. While seated, patient performed a lower extremity strengthening program, as per flow sheet. ASSESSMENT: Patient tolerated session with complaints of stiffness in L hip with sit to stand transfer, however he does not complain of pain. Patient was able to tolerate a progression in his standing tolerance in STEDY. He required less assistance when performing sit<> stand transfers. He was also able to tolerate the addition of several lower extremity strengthening exercises. Patient would benefit from continued transfer training as well as strengthening to improve ability to perform daily functional tasks. PLAN: Continue with PTs POC TREATMENT CODE/TIME: 30 minutes; TA/TP
[2018-07-09 20:11] VITALS: BP 122/75; PULSE 82; RESP 16; TEMP 37; O2SAT 95
[2018-07-09] MEDS: Atorvastatin 40 MG TAB PO (20:12)
[2018-07-09] MEDS: Finasteride 5 MG TAB PO (20:12)
[2018-07-09] MEDS: Metoprolol 25 MG TAB PO (20:13)
[2018-07-09 23:43] VITALS: BP 136/75; PULSE 81; RESP 20; TEMP 37.2; O2SAT 93
[2018-07-10 03:56] VITALS: BP 133/74; PULSE 89; RESP 20; TEMP 37; O2SAT 93
[2018-07-10 07:30] VITALS: BP 152/76; PULSE 89; RESP 18; TEMP 37.1; O2SAT 94
[2018-07-10 07:31] LABS: HCT 34.9 % (40.0-50.0); HGB 11.5 g/dL (13.5-17.5); Mean Corpuscular Hemoglobin 33.8 pg (27.0-33.0); Mean Corpuscular Volume 102.6 fL (80-95); Mean Platelet Volume 11.6 fL (8.0-11.0); Platelet Count 163 x1000/uL (130-400); RBC Distribution Width 12.3 % (11.8-14.1); White Blood Cell Count 7.07 k/cumm (4.4-10.8)
[2018-07-10 07:41] LABS: Anion Gap 7.4 mmol/L (3-11); BUN 32 mg/dL (7-18); CO2 26.6 mmol/L (21.0-32.0); CREATININE 1.01 mg/dL (0.70-1.30); Calcium 8.2 mg/dL (8.5-10.1); Chloride 105 mmol/L (98-107); Glucose 100 mg/dL (70-100); Potassium 4.1 mmol/L (3.5-5.1); Sodium 139 mmol/L (136-145)
--- NOTE | 2018-07-10 08:22 | PT.INTREAT ---
Date of service: 07/10/18 Time of Service: 08:22 PT Notes Inpatient Physical Therapy Treatment Note Date: 07/10/18 PRECAUTIONS: WBAT on L, posterior total hip precautions SUBJECTIVE: Esther states that he feels pretty good this morning, just a little sore around the left hip area. OBJECTIVE: PAIN: Patient complained of mild soreness while supine in bed BED MOBILITY/TRANSFERS Supine-sit: Mod A with HOB at 20 degrees Sit-stand: Mod A Stand-sit: Min A GAIT Assistive Device: FWW Weight bearing: WBAT on L Assist: Min A x2 Distance: 5 feet x2 Deviation: Anxious about falling Static stand x 3 minutes with Min A/CGA THEREX: Patient completed a lower extremity strengthening program, as per flow sheet. Patient tolerated a slight progression in his program today, see flow sheet for modifications made to repetitions. ASSESSMENT: Patient tolerated session well, however expresses anxiety over fear of falling. Patient was able to tolerate static standing with FWW support x3 minutes with Min A/CGA. Patient was able to tolerate a progression in gait distance using FWW support, as well as a progression in ther ex for lower extremity strengthening. Patient would benefit from continued transfer and gait training as well as strengthening for improved ability to perform daily functional tasks, at a more independent level. PLAN: Continue with PTs POC TREATMENT CODE/TIME: 40 minutes; TA x2/TP
[2018-07-10] MEDS: Pantoprazole 40 MG TABCR PO (08:50)
[2018-07-10] MEDS: Carbidopa 25/Levodopa 100 TAB PO (08:50)
[2018-07-10] MEDS: Clopidogrel 75 MG TAB PO (08:50)
[2018-07-10] MEDS: Metoprolol 25 MG TAB PO (08:50)
[2018-07-10] MEDS: Normal Saline Flush 10 ML SYR IVP (08:51)
--- NOTE | 2018-07-10 10:37 | DSE_ITS ---
Date of service: 07/10/18 Time of Service: 10:35 DS: Diagnosis Discharge Diagnosis (1) Hip fracture: Status: Acute (2) CHF (congestive heart failure): Status: Chronic (3) Parkinson disease: Status: Chronic (4) CAD (coronary artery disease): Status: Chronic (5) DVT prophylaxis: Status: Acute (6) Discharge planning issues: Status: Acute (7) Depression: Status: Chronic (8) Back pain: Status: Chronic (9) Hypertension: Status: Chronic (10) RBBB: Status: Chronic (11) BPH (benign prostatic hyperplasia): Status: Chronic (12) Old non-ST elevation myocardial infarction (NSTEMI): Status: Chronic Discharge Plan Disposition Patient Disposition: SKILLED NSG. FAC.(LEVEL 1) Condition: Good Discharge Details Reason For Visit: SUBCAPITAL LEFT HIP FRACTURE Admit Date/Time: 07/05/18 16:46 Admit Provider: Shannon Wall Attending Provider: Shannon Wall Primary Care Provider: Warren Cleary [facility] Course Hospital Course: Esther Castillo is a 73-year-old man with a past medical history significant for Parkinson's disease, chronic gait dysfunction with multiple previous falls, and a history of CAD with prior NSTEMI in 2013 and a cardiomyopathy with an LVEF of 30-35%, who presented as transfer from [facility] with a left hip fracture following a fall. His imaging was obtained at [facility] and brought to [facility] on a disc. He went on to have his left hip fracture surgically repaired by Dr. Pena on 07/07/2018. He is postop day #3 following unipolar prosthetic replacement of the left femoral head for femoral neck fracture. His blood pressures were low at one point, he received IV fluid boluses and his blood pressure medications were held temporarily, with subsequent improvement in his blood pressure. His metoprolol and Lasix were restarted at lower doses. He will need close monitoring of his blood pressures and heart rate and may need adjustment of his beta-jarrod and diuretic doses going forward. He worked with physical therapy, PT recommended continued rehab prior to returning home. Of note, he did have a Lee catheter in place while he was hospitalized. He had some subsequent hematuria noted after the Lee was discontinued. This will need monitoring. If the hematuria persists, consider follow-up with urology. On the day of discharge his labs were notable for a BUN of 32 with a creatinine of 1.01 his glucose was 100, he initially had mild leukocytosis with a white blood cell count of 11.25, his white blood cell count was down to 7.07 on the day of discharge. His hemoglobin and hematocrit are stable at 11.5 and 34.9. He does take Plavix which has been restarted status post surgery and will be appropriate for DVT prophylaxis per Dr. Pena. He will need his leonidas removed in 2 weeks time. He will follow-up with Dr. Pena, orthopedics in 1 month. He may shower, it is fine for the leonidas to get wet. A light gauze dressing may be applied to prevent clothing from pulling on the leonidas. He does appear to be sensitive to narcotics. He has been accepted at [facility] and will transition to [facility] today. Home Meds and New Rx's Prescriptions: New acetaminophen [Tylenol] 325 mg Tablet 650 mg PO Q6H PRN PRNQty: 1 RF: 0 tramadol 50 mg Tablet 25 - 50 mg PO Q6H PRN PRNQty: 5 RF: 0 pantoprazole 40 mg Tablet,Delayed Release (Dr/Ec) 40 mg PO DAILY@0730 Qty: 0 RF: 0 metoprolol tartrate 25 mg Tablet 25 mg PO BID Qty: 0 RF: 0 Continue atorvastatin 40 mg Tablet 40 mg PO DAILY RF: 0 clopidogrel 75 mg Tablet 75 mg PO DAILY RF: 0 tamsulosin 0.4 mg Capsule 0.4 mg PO HS RF: 0 finasteride 5 mg Tablet 5 mg PO QPM RF: 0 carbidopa-levodopa 25-100 mg Tablet,Disintegrating 2 tab PO QID RF: 0 losartan 25 mg Tablet 25 mg PO DAILY RF: 0 Changed furosemide 40 mg Tablet 40 mg PO DAILY Qty: 0 RF: 0 Discontinued metoprolol succinate 100 mg Tablet Extended Release 24 Hr 150 mg PO DAILY RF: 0 Discharge Instructions Instructions: Fall Prevention for Older Adults (GEN), ORIF of Hip Fracture (DC) Stand Alone Forms: Nursing Discharge Form Referrals: Gwyn Pena MD [ [facility] STAFF PHYSICIAN] - 08/07/18 10:30 am Activity:: Activity as Tolerated Equipment/Supplies:: No Equipment Needed Diet:: heart healthy Discharge Orders Discharge Orders: Discharge Order (Routine); Ordered 07/10/18 Ordered By: Cailin Steven Other Ambulatory Orders: Complete Blood Count No Diff (Routine) Timeframe: 1 Week Location: Determined by Patient Ordered By: Cailin Steven Exam Narrative Exam Narrative: Esther is awake alert and oriented. He is sitting up in the chair, finishing his breakfast. He is pleasant and cooperative. His heart rate is regular, non-tachycardic. Respirations are even and unlabored, lung sounds clear to auscultation throughout. His left hip surgical dressing is intact, no edema or ecchymosis noted surrounding the dressing. No edema to bilateral lower extremities. Peripheral pulses palpable. DS: Data Vitals/I&O Vitals and I&O: Vital Signs Temperature 37.1 C 07/10/18 07:30 Temperature Source Tympanic 07/10/18 07:30 Pulse 89 07/10/18 07:30 Pulse Rhythm Regular 07/10/18 06:00 Respiratory Rate 18 07/10/18 07:30 Respiratory Effort Non-Labored 07/10/18 06:00 Respiratory Depth Normal 07/10/18 06:00 Respiratory Pattern Normal 07/10/18 06:00 Blood Pressure 152/76 H 07/10/18 07:30 Pulse Oximetry 94 L 07/10/18 07:30 Respiratory End-tidal CO2 25 07/07/18 17:35 Oxygen Delivery Method Room Air 07/10/18 07:30 Oxygen Flow Rate 0 07/10/18 07:30 Pain Level 3 07/10/18 07:30 Comment 07/10/18 03:56 Intake & Output 07/09/18 07/09/18 07/10/18 11:59 23:59 11:59 Intake Total 100 / 100 1380 / 1380 350 / 350 Output Total 400 / 400 225 / 225 350 / 350 Balance -300 / -300 1155 / 1155 0 / 0 Weight 73.7 kg 73.1 kg Intake: IV 20 / 20 Oral 100 / 100 1360 / 1360 350 / 350 Output: Urine 400 / 400 225 / 225 350 / 350 Other: Urine Color Dark Eleanor Light Eleanor Yellow Urine Appearance Clear Clots Clots Clots Urine Odor Strong Comment heavy diaper pt was also a little incontinent of urine with a red tinge Voiding Methods Urinal Urinal Urinal Diaper Incontinent Labs on day of discharge: Labs from last 24 hours 07/10/18 07/10/18 06:10 06:10 WBC 7.07 RBC 3.40 L Hgb 11.5 L Hct 34.9 L MCV 102.6 H MCH 33.8 H MCHC 33.0 RDW 12.3 Plt Count 163 MPV 11.6 H Sodium 139 Potassium 4.1 Chloride 105 Carbon Dioxide 26.6 Anion Gap 7.4 BUN 32 H Creatinine 1.01 Estimated GFR/1.73 m2 >= 60.00 Glucose 100 Calcium 8.2 L Preliminary micro results at discharge 07/06/18 21:49 Blood Culture - Preliminary Blood NO GROWTH 72 HOURS 07/06/18 21:56 Blood Culture - Preliminary Blood NO GROWTH 72 HOURS
[2018-07-10] MEDS: Multivitamin w/Minerals TAB 1 TAB PO (10:56)
[2018-07-10] MEDS: Furosemide 40 MG TAB PO (10:56)
--- NOTE | 2018-07-10 10:56 | OT.INTREAT ---
Date of service: 07/10/18 Time of Service: 08:42 Occupational Therapy Notes Occupational Therapy Inpatient Treatment Note Date: 07/10/18 PRECAUTIONS: Posterior hip precautions, WBAT on (L) SUBJECTIVE: Pt sitting in chair when OT arrived. Pt states that he has been performing his hand exercises for cognitive training per his Parkinsons and states, I'm not sure that my brain is working. Pt also reports multiple time through OT session that I was better when I was home, I don't know what happened. OBJECTIVE: PAIN:no c/o pain. EATING: Sitting in chair for breakfast pt reports that LNAs typically feed him, because he makes a mess. Pt reports that cutting his food he uses just his fork but sometimes can't get his brain to lift his arm like he would like because of his parkinsons. OT provided max (A) for cutting of food and opening containers. With minimal verbal cues to lift arm up higher, pt was able to (I) bring food to his mouth. Due to pt's stutter/ tremor from Parkinsons he tends to push his food over the edge of his plate decreasing his (I) in eating routine. OT educated and provided pt with information of inner lip plate and food guard to increase pt's (I) in eating routine. Pt demonstrated good understanding of this and OT will speak with food services at [facility] for pt to use food guard during mealtime at lunch. OT educated and discussed this with pt. Ot educated pt on providing self verbal cues to lift arm when performing eating routine to send a verbal cues to brain to perform task when needed. Pt Education: Pt educated on use of gripping foam cube in (L) hand when bringing food to mouth with (R) to decrease Parksinsons tremor. Pt demonstrated good technique with this with ideal results. Pt instructed to try this while performing lunchtime routine. Pt also educated to squeeze pink foam cube in (B) hands 3-4 times per day 10x each to maintain electrician rectifier maintenance strength and movement of hands to increase fine motor (I) for ADL routine. THEREX: Performed (B) hand Parkinson exercises 10 x each with minimal verbal cues. Pt provided handout with written and illustrated directions. ASSESSMENT: Pt demonstrated increased (I) in eating routine. OT will speak with food services about use of plate guard for meal time routines to increase pt' s(I) in eating. Pt would benefit from skilled OT services for increased (I) in dressing, bathing and grooming routine with adaptive equipment and UE strengthening. PLAN: Per POC, initiate UE strengthening program Education on Energy conservation techniques TREATMENT CODES/TIME: Self Care x2, 10:20 Vernell Lopez OTR/L
--- NOTE | 2018-07-10 11:49 | INDS_ITS ---
Date of service: 07/10/18 Time of Service: 11:47 PT Notes Inpatient Physical Therapy Discharge Summary Date: 07/10/18 Dates of Service: 07/08/18-07/10/18 SUBJECTIVE: NT OBJECTIVE: 07/08/18-07/10/18 Bed Mobility/Transfers: Supine-sit: modAx1 Sit-stand: modAx1 with FWW Bed-chair: max A STEDY lift Stand-sit: minAx1 Gait: minAx2 with FWW 5ftx2 Balance: Static Sitting: normal Dynamic Sitting: good Static Standing: poor Dynamic Standing: poor Assessment: Pt is a 73yr old s/p posterior total hip arthroplasty by Dr. 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 Goals: Goals X1 week 1. Supine-Sit: minAx1 2. Sit-Supine: minAx1 3. Sit-Stand : modAx1 with FWW 4. Stand-Sit: minAx1 5. Bed-Chair: modAx1 with FWW 6. Chair-Bed: modAx1 with FWW 7. Gait: modax1 with FWW 30ft, WBAT L LE Pt met goal # 4 DISCHARGE RECOMMENDATIONS: maintenance repairer care facility for rehab, FWW for gait stability G Codes in the area mobility of walking and moving around: projected status GP [id number]. Discharge status (if discharging) GP [id number] CM Liyah Alberts PT
--- NOTE | 2018-07-10 11:59 | CMDISCH_ITS ---
- If Service Date Differs Date of service: 07/10/18 Time of Service: 11:57 LACE Index Scoring Tool - Questions: Length of Stay (in days): 4 - 6 Acuity (Admit via E.D.?): No Comorbidities: Congestive Heart Failure E.D. Visits: 0 - Answers: Total Score: 6 Risk of Readmission: Low Risk Care Management Discharge Reason for Hospitalization: Subcapital L Hip FX Discharge Plan: Esther will DC to [facility] today at 1130. DAVIS spoke with [facility] whom has accepted Esther for admission. DAVIS spoke with [facility], to arrange for 1130 transport time. 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 Forms are on the front of the chart. Esther states this morning that he hopes the food is good at [facility] and discusses some of the foods he likes /dislikes. Patient/Family Education Needs: Review DC instructions, any limitations, and discuss Ask Me Three Services Needed at Discharge: Long Term Facility ([facility]), Transportation ([facility])
== END 2018-07-10 11:39 | disposition skilled nursing facility (03) | DRG 536 ==
LOC: MS 16:09
PROVIDERS: Internal Medicine; Nurse Practitioner; Orthopaedic Surgery; Admitting Provider Internal Medicine; PCP Internal Medicine; Visit Provider Internal Medicine
PROC: 0SRS039 Replacement of Left Hip Joint, Femoral Surface with Ceramic Synthetic Substitute, Cemented, Open Approach (ICD-10-PCS; CPT 27125; principal; 2018-07-07 11:45)
DX: S72.012A Unspecified intracapsular fracture of left femur, initial encounter for closed fracture (principal); I50.42 Chronic combined systolic (congestive) and diastolic (congestive) heart failure; I43 Cardiomyopathy in diseases classified elsewhere; W19.XXXA Unspecified fall, initial encounter; Z91.81 History of falling; G20 Parkinson's disease; Y92.019 Unspecified place in single-family (private) house as the place of occurrence of the external cause; R26.81 Unsteadiness on feet; D72.829 Elevated white blood cell count, unspecified; I95.81 Postprocedural hypotension; R31.0 Gross hematuria; I11.0 Hypertensive heart disease with heart failure; I25.10 Atherosclerotic heart disease of native coronary artery without angina pectoris; I45.10 Unspecified right bundle-branch block; F32.9 Major depressive disorder, single episode, unspecified; N40.0 Benign prostatic hyperplasia without lower urinary tract symptoms; I25.2 Old myocardial infarction; Z95.5 Presence of coronary angioplasty implant and graft; I08.3 Combined rheumatic disorders of mitral, aortic and tricuspid valves; Z66 Do not resuscitate
CPT/HCPCS: 27236; 36410; 36415; 80048; 82550; 83721; 85027; 86850; 86900; 86901; 87040; 87077; 93306; 97110; 97163; 97167; 97530; 97535; 99221; 99222; 99232; 99239; 99252; NC; 71045; 72170; 81003; 81015; 83735; 84443; 84484; 85014; 85018; 85610; 87086; J0690; J1885; J1940; J2270; J2405; L1686

== ENCOUNTER → 2018-07-06 15:00 | Outpatient (BNVA) | payer MEDICARE, SELFPAY | PROVIDERS: PCP Internal Medicine; Referring Provider Internal Medicine; Visit Provider Orthopaedic Surgery | DX: R69 Illness, unspecified (principal) ==

== ENCOUNTER → 2018-07-07 08:11 | Outpatient (BNVA) | payer MEDICARE, SELFPAY | PROVIDERS: PCP Internal Medicine; Visit Provider Internal Medicine Interventional Cardiology | DX: R69 Illness, unspecified (principal) ==

== ENCOUNTER → 2018-07-07 10:18 | Outpatient (BNVA) | payer MEDICARE, SELFPAY ==
--- NOTE | 2018-07-10 12:42 | OTDS_ITS ---
Date of service: 07/10/18 Time of Service: 12:40 Occupational Therapy Notes Occupational Therapy Inpatient Discharge Summary Date: 07/10/18 Dates of Service: 07/09/18-07/10/18 PRECAUTIONS: Posterior Hip Precautions/ WBAT (L) LE SUBJECTIVE: Not tested. OBJECTIVE: 07/09/18-07/10/18 Pt educated at OT consult for Adaptive equipment and hip kit precautions. EATING: Pt progressed from max (A) from [employer] to set up (A) with verbal cues for arm placement. OT recommend that pt use plate guard or indented plate to increase (I) in pt's eating routine. Handout was provided to pt for adaptive equipment. Pt able to bring food to mouth (I). ASSESSMENT: Patient is a 73-year-old male referred to occupational therapy services s/p posterior total hip arthroplasty performed by Dr. Pena 07/07/18 with of Parkinson's disease, chronic gait dysfunction, chronic back pain, coronary artery disease. Pt was seen for 2 OT sessions including eval. Pt is transferred to [facility] facility for continued rehab and services. GOALS 1. Transfers Mod (A), FWW 2. Dressing sitting in chair Mod (A) with moderate verbal cues for UE/LE don and doff of clothing with use of adaptive equipment. 3. Bathing sitting on bench/chair Mod (A) with use of adaptive equipment and ideal demonstration of posterior hip precautions. 4. Toileting on commode, mod (A) 5. Eating Min (A) to feed himself with minimal verbal cues. Pt met goal 5: able to eat (I) with minimal verbal cues and use of adaptive equipment of plate guard with (A) with opening containers. DISCHARGE RECOMMENDATIONS: [facility] care facility for rehab, FWW for gait stability TREATMENT CODES/TIME: G Codes in the area of self- : washing oneself, toileting, dressing, eating and drinking, current status [id number] CK projected status GP [id number]. Discharging Status GP [id number]. Vernell Lopez, OTR/L
== END ==
PROVIDERS: PCP Internal Medicine; Referring Provider Internal Medicine; Visit Provider Orthopaedic Surgery
DX: R69 Illness, unspecified (principal)